=== PATIENT | male | born 1950 | race Caucasian/White ===

== ENCOUNTER → 2016-07-12 | Outpatient (CLI) | payer MEDICARE ==
[2016-07-12 20:09] LABS: Hemoglobin A1C 7.1 % (4.2-6.1)
== END ==
LOC: MMGSC 14:52
PROVIDERS: ATTEND Family Medicine
DX: E11.9 Type 2 diabetes mellitus without complications (principal)
CPT/HCPCS: 36415; 83036

== ENCOUNTER → 2016-10-11 | Outpatient (CLI) | payer MEDICARE ==
[2016-10-11 20:40] LABS: Hemoglobin A1C 7.3 % (4.2-6.1)
[2016-10-12 01:38] LABS: Urine Creatinine 73.6 mg/dL
== END ==
LOC: MMGSC 15:45
PROVIDERS: ATTEND Family Medicine
DX: E11.9 Type 2 diabetes mellitus without complications (principal)
CPT/HCPCS: 36415; 82043; 82570; 83036

== ENCOUNTER → 2016-11-16 | Outpatient (CLI) | payer MEDICARE ==
[2016-11-16 19:12] LABS: Basophils % (A) 0 %; CH 29.7; CHCM 33.3; Eosinophils # (A) 0.1 k/uL (0-0.7); Eosinophils % (A) 1 %; HCT 40.6 % (39.0-53.0); HDW 2.46; HGB 13.5 gm/dL (13.0-17.5); Luc % (Auto) 3; Lymphocytes # (A) 2.5 k/uL (1.0-4.8); Lymphocytes % (A) 23 %; MCH 29.8 pg (25.0-35.0); MCHC 33.3 g/dL (31.0-37.0); MCV 89.6 fL (80.0-100.0); Mean Platelet Volume 8.5; Monocytes # (A) 0.6 k/uL (0-1.0); Monocytes % (A) 6 %; Neutrophils # (A) 7.5 k/uL (1.3-7.7); Neutrophils % (A) 67 %; RBC 4.52 m/uL (4.30-5.90); WBC (Perox) 11.12
[2016-11-16 19:23] LABS: ALT 40 U/L (21-72); AST 27 U/L (17-59); Alkaline Phosphatase 59 U/L (38-126); Anion Gap 9 mmol/L; Blood Urea Nitrogen 13 mg/dL (9-20); Calcium 9.2 mg/dL (8.4-10.2); Carbon Dioxide 30 mmol/L (22-30); Chloride 96 mmol/L (98-107); Cholesterol 115 mg/dL (<200); Glucose 150 mg/dL (74-99); HDL Cholesterol 28 mg/dL (40-60); Non-African American GFR(MDRD) >60 (>60 ml/min/1.73 sqM); Potassium 4.5 mmol/L (3.5-5.1); Sodium 135 mmol/L (137-145); Total Bilirubin 0.4 mg/dL (0.2-1.3); Total Protein 6.9 g/dL (6.3-8.2)
[2016-11-16 20:43] LABS: Hemoglobin A1C 7.6 % (4.2-6.1)
== END ==
LOC: MMGSC 15:43
PROVIDERS: ATTEND Family Medicine
DX: E11.9 Type 2 diabetes mellitus without complications (principal); M54.5 Low back pain; F41.9 Anxiety disorder, unspecified
CPT/HCPCS: 36415; 80053; 80061; 83036; 84439; 84443; 85025

== ENCOUNTER → 2017-03-16 | Outpatient (CLI) | payer MEDICARE ==
[2017-03-16 19:07] LABS: ALT 41 U/L (21-72); AST 24 U/L (17-59); Albumin 4.4 g/dL (3.5-5.0); Alkaline Phosphatase 62 U/L (38-126); Anion Gap 13 mmol/L; Blood Urea Nitrogen 12 mg/dL (9-20); Calcium 9.6 mg/dL (8.4-10.2); Carbon Dioxide 30 mmol/L (22-30); Chloride 98 mmol/L (98-107); Glucose 130 mg/dL (74-99); Sodium 141 mmol/L (137-145); Total Bilirubin 0.5 mg/dL (0.2-1.3); Total Protein 7.5 g/dL (6.3-8.2)
[2017-03-16 19:13] LABS: T4, Free (Free Thyroxine) 1.07 ng/dL (0.78-2.19)
[2017-03-17 01:34] LABS: Hemoglobin A1C 7.3 % (4.0-6.0)
== END | disposition home or self-care (01) ==
LOC: MMGSC 14:36
PROVIDERS: ATTEND Family Medicine
DX: E11.9 Type 2 diabetes mellitus without complications (principal); I10 Essential (primary) hypertension; Z51.81 Encounter for therapeutic drug level monitoring
CPT/HCPCS: 36415; 80053; 83036; 84439; 84443

== ENCOUNTER 2018-11-28 07:44 | Day surgery (SDC) | payer MEDICARE ==
[2018-11-23 12:41] VITALS: BMI 48.0
[~2018-11-28 07:44] MED LIST: ALPRAZolam 0.25 MG TAB PO PRN; ALPRAZolam 0.5 MG TAB PO PRN; ASPIRIN 325 MG TAB PO STA; ATORVASTATIN 80 MG TAB PO STA; NITROGLYCERIN SL TABS 0.4 MG TAB SUBLINGUAL PRN; SODIUM CHLORIDE 0.9% 1,000 ML in EMPTY BAG 1 BAG IV ONE
[2018-11-28 08:20] VITALS: TEMP 97.8
[2018-11-28 08:40] LABS: Glucose,Whole Blood 142 mg/dL (75-99)
[2018-11-28] MEDS ORDERED: LIDOCAINE 1% INJ 10MG/ML (20 ML MDV) ONE (09:01)
[2018-11-28] MEDS ORDERED: VERAPAMIL 2.5 MG/ML 2 ML AMP ONE (09:01)
[2018-11-28] MEDS ORDERED: fentaNYL (PF) 50 MCG/ML 2 ML AMP ONE (09:06)
[2018-11-28] MEDS ORDERED: HEPARIN SODIUM 1,000 UN/ML (10ML VL) ONE (09:06)
[2018-11-28] MEDS ORDERED: fentaNYL (PF) 50 MCG/ML 2 ML AMP IVP ONE (09:30)
[2018-11-28] MEDS ORDERED: LIDOCAINE 1% INJ 10MG/ML (20 ML MDV) SQ ONE (09:30)
[2018-11-28] MEDS ORDERED: VERAPAMIL SYRINGE (5 MG/10 ML) INTRAARTER ONE (09:33)
[2018-11-28] MEDS ORDERED: HEPARIN SODIUM 1,000 UN/ML (10ML VL) IV ONE (09:38)
[2018-11-28] MEDS ORDERED: IOPAMIDOL-370 125ML BTL INJ ONE (09:47)
[2018-11-28] MEDS ORDERED: RX INFO: IV CONTRAST WAS GIVEN 1 EACH MISC MISCELLANE PRN (09:59)
[2018-11-28] MEDS ORDERED: oxyCODONE-APAP 10-325MG 1 EACH TAB PO PRN (10:00)
[2018-11-28] MEDS ORDERED: SODIUM CHLORIDE 0.9% 1,000 ML IV SCH (10:00)
--- NOTE | 2018-11-28 10:22 | CC ---
CARDIAC CATHETERIZATION REPORT Mr. Vo is a 67-year-old male with a known history of chronic persistent atrial fibrillation, history of hypertension, hyperlipidemia and diabetes mellitus, who presented with symptoms of progressive dyspnea and chest discomfort with physical activity. Because of that and because of his multiple risk factors, recommendation was made regarding cardiac catheterization. The procedure as well as the risks and the complications were discussed with the patient who is in full understanding and agreement. PROCEDURE: Patient was brought to manager cath lab in a fasting semi-sedated state after receiving fentanyl and Benadryl and achieving moderate conscious sedated state. Using Xylocaine anesthesia and Seldinger technique, a 6-Eritrean sheath was introduced in the right radial artery. Selective right and left coronary angiography performed using 5-Eritrean 3.5 bend right and left Samuel catheters. Multiple views of the coronary artery including hemiaxial views obtained. Following that, 5-Eritrean tight pigtail catheter was introduced in the left ventricle and a 30-degree KOO view of the left ventricle was obtained. Following that, catheter and sheath were removed. Hemostasis was obtained with deployment of a TR band. There was no immediate complication. Patient was returned to his room in stable condition. The patient received 5000 units of intravenous heparin as well as intra-arterial verapamil. FINDINGS: LEFT MAIN: This is a large-sized vessel trifurcating left circumflex, left anterior descending artery and ramus intermedius. Left main coronary artery has no evidence of high-grade stenosis. LEFT ANTERIOR DESCENDING ARTERY: This is a large-sized vessel reaching to the apex, tapers down distal third gives rise to 2 diagonal branches of moderate caliber. The left anterior descending artery as well as branches have no evidence of obstructive coronary artery disease. LEFT CIRCUMFLEX: This is a nondominant vessel giving rise to one obtuse marginal branch of moderate caliber. The left circumflex as well as branches have no evidence of obstructive coronary artery disease. RAMUS INTERMEDIUS: This is a large-sized vessel reaching toward the apical lateral wall. The ramus intermedius has no evidence of high-grade stenosis. RIGHT CORONARY ARTERY: This is a large dominant vessel bifurcating distally in PDA and posterolateral segment branches. The right coronary artery in mid segment and in distal segment has 10% to 20% plaque. The rest of the vessel has no high-grade stenosis. LEFT VENTRICULOGRAM: Left ventriculogram is performed in 30-degree KOO view and revealed normal left ventricular size and systolic function. Ejection fraction is 60%. There was no significant mitral regurgitation. HEMODYNAMICS: There was no gradient across the aortic valve. The left ventricular end-diastolic pressure was 16 mmHg. IMPRESSION: 1. Mild coronary artery disease involving the right coronary artery. 2. Normal left ventricular size and systolic function. RECOMMENDATION: In view of finding anatomy, I recommend to continue medical therapy with aggressive coronary risk modifications that have been initiated. Those findings and recommendations were discussed with the patient and his family who are in full understanding and agreement. Duration of procedure is 19 minutes. MMODL / IJN: [id number] /
--- NOTE | 2018-11-28 10:28 | LTR ---
November 28, 2018 Re: Olman Vo Dear Dr. Monge: I had the opportunity to perform cardiac catheterization on Mr. Vo at [facility] on the 28 of November and a full copy of the procedure note will be forwarded to you. In brief, he was found to have mild disease in the RCA with preserved left ventricular size and systolic function. Based on those findings, I recommend continued medical therapy with aggressive coronary risk modifications that have been initiated. Thank you again for allowing me the opportunity to participate in his care. Please feel free to call for any questions. Sincerely yours, MD LAURYN KnowlesL / NIRANJANN: [phone] /
[2018-11-28] MEDS ORDERED: HYDROcodone/APAP 10-325MG 1 EACH TAB ONE (11:12)
[2018-11-28 13:31] VITALS: RESP 16
[2018-11-28 15:07] VITALS: BP 112/72; PULSE 57
[2018-11-28] MEDS ORDERED: BACLOFEN 10 MG TAB PO SCH (16:00)
[2018-11-28] MEDS ORDERED: LAMOTRIGINE 200 MG PO SCH (21:00)
[2018-11-28] MEDS ORDERED: GLIMEPIRIDE 4 MG TAB PO SCH (21:00)
[2018-11-28] MEDS ORDERED: MORPHINE SULFATE ER 60 MG TABLET PO SCH (21:00)
[2018-11-28] MEDS ORDERED: SENNOSIDES 8.6 MG TAB PO SCH (21:00)
[2018-11-28] MEDS ORDERED: GABAPENTIN 400 MG CAP PO SCH (21:00)
[2018-11-28] MEDS ORDERED: METOPROLOL TARTRATE 100 MG PO SCH (21:00)
[2018-11-29] MEDS ORDERED: PANTOPRAZOLE 40 MG TABLET PO SCH (07:30)
[2018-11-29] MEDS ORDERED: FLUTICASONE 44 MCG INHALER INHALATION SCH (08:00)
[2018-11-29] MEDS ORDERED: VENLAFAXINE HCL ER 150 MG CAP PO SCH (09:00)
[2018-11-29] MEDS ORDERED: LISINOPRIL-HCTZ 20-12.5 MG 1 EACH TAB PO SCH (09:00)
[2018-11-29] MEDS ORDERED: VENLAFAXINE HCL 37.5 MG TAB PO SCH (09:00)
[2018-11-29] MEDS ORDERED: NON FORMULARY DRUG (Liraglutide [Victoza 3-Pak] 1.8 MG) SQ SCH (09:00)
[2018-11-29] MEDS ORDERED: MELOXICAM 7.5 MG TAB PO SCH (09:00)
[2018-11-29] MEDS ORDERED: ATORVASTATIN 20 MG TAB PO SCH (09:00)
[2018-11-29] MEDS ORDERED: NON FORMULARY DRUG (Linaclotide [Linzess] 145 MCG) PO SCH (09:00)
== END 2018-11-28 15:08 | disposition home or self-care (01) ==
LOC: CATHCVL 07:44
PROVIDERS: ATTEND Internal Medicine Interventional Cardiology
DX: I25.110 Atherosclerotic heart disease of native coronary artery with unstable angina pectoris (principal); I10 Essential (primary) hypertension; Z57.31 Occupational exposure to environmental tobacco smoke; E78.2 Mixed hyperlipidemia; E78.00 Pure hypercholesterolemia, unspecified; E11.51 Type 2 diabetes mellitus with diabetic peripheral angiopathy without gangrene; Z82.49 Family history of ischemic heart disease and other diseases of the circulatory system; G47.33 Obstructive sleep apnea (adult) (pediatric); I48.1 Persistent atrial fibrillation; Z79.01 Long term (current) use of anticoagulants; Z79.84 Long term (current) use of oral hypoglycemic drugs; Z79.891 Long term (current) use of opiate analgesic; Z79.51 Long term (current) use of inhaled steroids; Z79.899 Other long term (current) drug therapy; Z88.0 Allergy status to penicillin; Z88.2 Allergy status to sulfonamides
CPT/HCPCS: 93458; J2001; J3010; J1644; Q9967

== ENCOUNTER 2018-12-13 05:34 | Day surgery (SDC) | payer MEDICARE ==
[2018-12-11 12:05] VITALS: BMI 48.7
[2018-12-13] MEDS ORDERED: LIDOCAINE 1% 20 ML VIAL (10MG/ML) FOR IV START INTRADERMA PRN (06:11)
[2018-12-13] MEDS ORDERED: LACTATED RINGERS 1,000 ML IV SCH (06:11)
[2018-12-13] MEDS ORDERED: SODIUM CHLORIDE 0.9% 1,000 ML IV SCH ×2 (06:11→07:45)
[2018-12-13 06:35] VITALS: TEMP 98.8
[2018-12-13 06:47] LABS: Glucose,Whole Blood 148 mg/dL (75-99)
[2018-12-13] MEDS ORDERED: BENZOCAINE SPRAY 1 CAN MUCOUS MEM ONE ×2 (07:20→07:25)
[2018-12-13] MEDS ORDERED: GLYCOPYRROLATE 0.2 MG/ML 2 ML VIAL ONE (07:26)
[2018-12-13] MEDS ORDERED: PROPOFOL 10 MG/ML 20 ML VIAL IV ONE (07:26)
[2018-12-13] MEDS ORDERED: LIDOCAINE 1% INJ 10MG/ML (20 ML MDV) ONE (07:26)
[2018-12-13] MEDS ORDERED: oxyCODONE-APAP 10-325MG 1 EACH TAB PO PRN (07:43)
[2018-12-13] MEDS ORDERED: BECLOMETHASONE DIPROPIONATE INHALATION PRN (07:43)
--- NOTE | 2018-12-13 07:59 | CE ---
CARDIAC ELECTROPHYSIOLOGY REPORT CARDIOVERSION PROCEDURE NOTE: INDICATION: Atrial fibrillation. PROCEDURE: After explaining the procedure to the patient as well as the risks and the complications and after obtaining transesophageal echocardiogram, a synchronized biphasic cardioversion using 200, 300 and subsequently 360 joules was successful in restoring normal sinus rhythm. There was no immediate complication. KATH / TOSIN: [id number] / MTDD
--- NOTE | 2018-12-13 07:59 | ECHOT ---
TRANSESOPHAGEAL ECHOCARDIOGRAM INDICATION: Evaluation left atrial appendage. PROCEDURE: After explaining the procedure to the patient, its risks and the complications, his blood pressure, heart rate, O2 saturation was monitored. He received sedation per Anesthesia Department. The probe was introduced into the esophagus without difficulty. Images were obtained. Following that, the probe was removed. There was no immediate complication. FINDINGS: The left atrial size is dilated measuring 5 cm, spontaneous contrast was noted. Left atrial appendage is normal. Left ventricular size and systolic function normal, the aortic valve, mitral, tricuspid and pulmonic valve are normal. Normal descending thoracic aorta appears to be normal. No pericardial effusion was noted. Contrast bubble study revealed no evidence of shunting across the interatrial septum. Doppler pulse wave and color Doppler obtained and revealed a mild mitral and tricuspid regurgitation. There was no shunting by color Doppler study. CONCLUSION: 1. Moderate dilated left atrium with spontaneous contrast. 2. Normal appearance left atrial appendage. 3. Normal left ventricular size and systolic function. 4. Mild mitral and tricuspid regurgitation. 5. No shunting across the interatrial septum. 6. Normal appearance of the descending thoracic aorta. MMODL / IJN: [id number] /
[2018-12-13] MEDS ORDERED: ATORVASTATIN 20 MG TAB PO SCH (09:00)
[2018-12-13] MEDS ORDERED: MORPHINE SULFATE ER 60 MG TABLET PO SCH (09:00)
[2018-12-13] MEDS ORDERED: NON FORMULARY DRUG (Metformin Hcl [Metformin Hcl] 1,000 MG) PO SCH (09:00)
[2018-12-13] MEDS ORDERED: BACLOFEN 10 MG TAB PO SCH (09:00)
[2018-12-13] MEDS ORDERED: LISINOPRIL-HCTZ 20-12.5 MG 1 EACH TAB PO SCH (09:00)
[2018-12-13] MEDS ORDERED: VENLAFAXINE HCL ER 150 MG CAP PO SCH (09:00)
[2018-12-13] MEDS ORDERED: MELOXICAM 15 MG PO SCH (09:00)
[2018-12-13] MEDS ORDERED: APIXABAN 5 MG TAB PO SCH (09:00)
[2018-12-13] MEDS ORDERED: NON FORMULARY DRUG (Linaclotide [Linzess] 145 MCG) PO SCH (09:00)
[2018-12-13] MEDS ORDERED: VENLAFAXINE HCL 37.5 MG TAB PO SCH (09:00)
[2018-12-13] MEDS ORDERED: GABAPENTIN 1200 MG PO SCH (09:00)
[2018-12-13] MEDS ORDERED: METOPROLOL TARTRATE 100 MG PO SCH (09:00)
[2018-12-13] MEDS ORDERED: NON FORMULARY DRUG (Liraglutide [Victoza 3-Pak] 1.8 MG) SQ SCH (09:00)
[2018-12-13] MEDS ORDERED: NON FORMULARY DRUG (Omeprazole [Omeprazole] 20 MG) PO SCH (09:00)
[2018-12-13] MEDS ORDERED: GLIMEPIRIDE 4 MG TAB PO SCH (09:00)
[2018-12-13 09:31] VITALS: BP 129/77; PULSE 62; RESP 18
[2018-12-13] MEDS ORDERED: SENNOSIDES 8.6 MG TAB PO SCH (21:00)
== END 2018-12-13 09:32 | disposition home or self-care (01) ==
LOC: CATHCVL 05:34
PROVIDERS: ATTEND Internal Medicine Interventional Cardiology
DX: I48.19 Other persistent atrial fibrillation (principal); I08.1 Rheumatic disorders of both mitral and tricuspid valves; I25.10 Atherosclerotic heart disease of native coronary artery without angina pectoris; I10 Essential (primary) hypertension; E78.2 Mixed hyperlipidemia; E11.51 Type 2 diabetes mellitus with diabetic peripheral angiopathy without gangrene; G47.33 Obstructive sleep apnea (adult) (pediatric); J44.9 Chronic obstructive pulmonary disease, unspecified; K21.9 Gastro-esophageal reflux disease without esophagitis; Z79.01 Long term (current) use of anticoagulants; Z79.84 Long term (current) use of oral hypoglycemic drugs; Z79.51 Long term (current) use of inhaled steroids; Z79.891 Long term (current) use of opiate analgesic; Z88.0 Allergy status to penicillin; Z88.2 Allergy status to sulfonamides; Z79.899 Other long term (current) drug therapy; Z82.49 Family history of ischemic heart disease and other diseases of the circulatory system; Z99.89 Dependence on other enabling machines and devices
CPT/HCPCS: 93312; 93320; 93325; 92960; J2001; J2704

== ENCOUNTER 2020-11-17 10:35 | Emergency (ER) | payer MEDICARE ==
--- NOTE | 2020-11-17 11:23 | ED ---
Lower Extremity Injury HPI - General Chief Complaint: Extremity Injury, Lower Stated Complaint: Leg Pain Time Seen by Provider: 11/17/20 11:00 Source: patient, family Mode of arrival: wheelchair Limitations: no limitations - History of Present Illness Initial Comments: Patient is a 69-year-old male, with history of multiple comorbidities, chronic back pain, bilateral knee replacements, presenting to the emergency Department with complaints of progressively worsening right leg pain over the past 2-3 months. Patient states he had a fall at her doctor's office a few months ago, felt like his right leg just gave out. He did have x-rays of his right hip at that time showed no acute fractures dislocations. He states over the last few months the pain has been progressively getting worse. He called his physician about this and they recommended coming into the ER. He has had surgery on his low back, thinks it could be a little sciatica as well. He denies any chest pain or shortness of breath, no abdominal pain, no fevers or chills. He is on a Eliquis secondary to A. fib, no history of blood clots. He has no further complaints at this time. Upon arrival to the ER his vitals are stable. - Related Data Home Medications Medication Instructions Recorded Confirmed Apixaban [Eliquis] 5 mg PO BID 11/23/18 12/13/18 Atorvastatin [Lipitor] 20 mg PO DAILY 11/23/18 12/13/18 Baclofen [Lioresal] 10 mg PO TID 11/23/18 12/13/18 Beclomethasone Dipropionate [Qvar 1 puff INHALATION BID PRN 11/23/18 12/13/18 40 mcg Redihaler] Gabapentin 1,200 mg PO BID 11/23/18 12/13/18 Glimepiride [Amaryl] 4 mg PO BID 11/23/18 12/13/18 Linaclotide [Linzess] 145 mcg PO DAILY 11/23/18 12/13/18 Liraglutide [Victoza 3-Ryan] 1.8 mg SQ DAILY 11/23/18 12/13/18 Lisinopril-Hctz 20-12.5 mg 1 tab PO DAILY 11/23/18 12/13/18 [Zestoretic 20-12.5] Meloxicam 15 mg PO DAILY 11/23/18 12/13/18 Metoprolol Tartrate [Lopressor] 100 mg PO BID 11/23/18 12/13/18 Morphine Sulfate [Ms Contin] 60 mg PO Q12HR 11/23/18 12/13/18 Omeprazole 20 mg PO DAILY 11/23/18 12/13/18 Sennosides [Senna] 4 tab PO BID 11/23/18 12/13/18 Venlafaxine HCl [Effexor XR] 150 mg PO DAILY 11/23/18 12/13/18 Venlafaxine HCl [Effexor] 37.5 mg PO DAILY 11/23/18 12/13/18 metFORMIN HCL [Glucophage] 1,000 mg PO BID 11/23/18 12/13/18 oxyCODONE-APAP 10-325MG [Percocet 1 tab PO Q8HR PRN 11/23/18 12/13/18 10-325 mg] Previous Rx's Medication Instructions Recorded predniSONE 50 mg PO DAILY #5 tab 11/17/20 Allergies Allergy/AdvReac Type Severity Reaction Status Date / Time Penicillins Allergy Anaphylaxis Verified 11/17/20 10:41 Sulfa (Sulfonamide Allergy Anaphylaxis Verified 11/17/20 10:41 Antibiotics) Review of Systems ROS Statement: Those systems with pertinent positive or pertinent negative responses have been documented in the HPI. ROS Other: All systems not noted in ROS Statement are negative. Past Medical History Past Medical History: Atrial Fibrillation, COPD, Diabetes Mellitus, GERD/Reflux, Hearing Disorder / Deafness, Hyperlipidemia, Hypertension, Musculoskeletal Disorder Additional Past Medical History / Comment(s): Chronic Back Pain, sees pain specialist, unable to walk any distance. Neuropathy in feet. Very [place], wears aids. History of Any Multi-Drug Resistant Organisms: None Reported Past Surgical History: Back Surgery, Heart Catheterization, Joint Replacement Additional Past Surgical History / Comment(s): Abel TKA. Colonoscopy. Glaucoma surg abel. Heart cath 11/28/18 Past Anesthesia/Blood Transfusion Reactions: No Reported Reaction Past Psychological History: Anxiety, Depression Past Alcohol Use History: Occasional Past Drug Use History: None Reported - Past Family History Father Family Medical History: Cancer General Exam - General Exam Comments Initial Comments: GENERAL: Patient is well-developed and well-nourished. Patient is nontoxic and in no acute distress. HEAD: Atraumatic, normocephalic. EYES: Pupils equal round and reactive to light, extraocular movements intact, sclera anicteric, conjunctiva are normal. Eyelids were unremarkable. ENT: Nares patent, oropharynx clear without exudates. Moist mucous membranes. NECK: Normal range of motion, supple without lymphadenopathy or JVD. LUNGS: Unlabored respirations. Breath sounds clear to auscultation bilaterally and equal. No wheezes rales or rhonchi. HEART: Regular rate and rhythm without murmurs, rubs or gallops. ABDOMEN: Soft, nontender, normoactive bowel sounds. No guarding, no rebound. No masses appreciated. : Deferred MUSCULOSKELETAL: Mild pain to palpation of the anterior right knee, he does have full active range of motion of the right hip and right knee. He is bilaterally neurovascular intact lower extremities. No significant edema, no erythema or signs of infection. No clubbing or cyanosis. NEUROLOGICAL: Patient is alert and oriented x 3. Motor and sensory are also intact. Cranial nerves II through XII grossly intact. Symmetrical smile. Normal speech, normal gait. PSYCH: Normal mood, normal affect. SKIN: Warm, Dry, normal turgor, no rashes or lesions noted. Limitations: no limitations Course Vital Signs 11/17/20 10:36 Temperature 98.8 F Pulse Rate 64 Respiratory 18 Rate Blood Pressure 182/78 O2 Sat by Pulse 95 Oximetry Medical Decision Making - Medical Decision Making Patient is a 69-year-old male with multiple Edwardo 80s, bilateral knee replacement, low back surgery and chronic pain, presenting with worsening right leg pain over the past 2-3 months. He had a fall a few months ago, right hip x- rays revealed no acute fracture dislocations. He does have full active range of motion of his right extremity, neurovascular intact. History of blood clots, he is on a Eliquis secondary to A. fib. Ultrasound is negative for DVT of the right lower extremity, x-ray of the right knee show a prosthetic is in alignment, no acute process, right hip x-ray reveals some trochanteric spurs, mild impingement, no acute fracture dislocation. Lumbar back x-ray shows degenerative changes, distress Of the bottom screws, patient is a 30 aware of this. I discussed these findings with the patient and his . These are all chronic issues going on I recommended following up with orthopedic. He is in agreement with this plan of care. He is wondering about pain relief. He R he takes morphine, Percocets at home. I recommended a short course of steroids to help improve inflammation, he is agreeable to this. Return parameters were discussed with him and he verbalized understanding. Case discussed with Dr. Mccray. Disposition Clinical Impression: Right knee pain, Lumbar radiculopathy, chronic Disposition: HOME SELF-CARE Condition: Stable Instructions (If sedation given, give patient instructions): Knee Pain (ED) Additional Instructions: Please return to the Emergency Department if symptoms worsen or any other concerns. Please follow-up with orthopedic as discussed. Trial of steriods for pain relief, please monitor sugar levels. Prescriptions: predniSONE 50 mg PO DAILY #5 tab Is patient prescribed a controlled substance at d/c from ED?: No Referrals: Sophy Phelan MD [Primary Care Provider] - 1-2 days Nicolas Lai MD [STAFF PHYSICIAN] - 1-2 days Time of Disposition: 13:52
--- NOTE | 2020-11-17 12:12 | US ---
EXAMINATION TYPE: US venous doppler duplex LE RT DATE OF EXAM: 11/17/2020 12:05 PM COMPARISON: NONE CLINICAL HISTORY: pain, swelling. Pain and swelling. No hx of DVT. Patient takes eliquis. Hx right kn ee replacement. SIDE PERFORMED: Right TECHNIQUE: The lower extremity deep venous system is examined utilizing real time linear array sonog balwinder with graded compression, doppler sonography and color-flow sonography. VESSELS IMAGED: Common Femoral Vein Deep Femoral Vein Greater Saphenous Vein * Femoral Vein Popliteal Vein Small Saphenous Vein * Proximal Calf Veins (* superficial vessels) Limited due to body habitus. Right Leg: No evidence of DVT in veins imaged at this time. IMPRESSION: 1. Limited exam demonstrates no diagnostic evidence of DVT as visualized.
--- NOTE | 2020-11-17 13:09 | XR ---
EXAMINATION TYPE: XR knee complete RT DATE OF EXAM: 11/17/2020 CLINICAL HISTORY: Increasing right knee pain. TECHNIQUE: Three views of the right knee are obtained. COMPARISON: Right knee x-ray July 28, 2020. FINDINGS: There is no acute fracture/dislocation evident in right knee. Metallic prosthesis felt sat isfactory in position. No suspicious surrounding lucency identified. The overlying soft tissue appear s unremarkable. IMPRESSION: As above. No significant change from prior.
--- NOTE | 2020-11-17 13:11 | XR ---
EXAMINATION TYPE: XR Hip Complete RT DATE OF EXAM: 11/17/2020 COMPARISON: NONE HISTORY: Pain TECHNIQUE: 2 views submitted FINDINGS: There is no evidence of erosive change or acute fracture. Mild concentric narrowing the joint space. Hypertrophic change of the acetabulum. Ossification overlying the humeral neck. The superficial bone or represent bone island. Tiny spur extending from the greater trochanter. IMPRESSION: 1. Mild arthropathy correlate for femoral acetabular impingement. 2. Small greater trochanter spur can be associated with trochanteric bursitis correlate clinically.
--- NOTE | 2020-11-17 13:13 | XR ---
EXAM TYPE: LUMBAR SPINE X RAY SERIES COMPARISON: None HISTORY: Pain TECHNIQUE: 3 views are submitted. FINDINGS: Postsurgical changes at levels L4-S1. There may be disruption of the transpedicular screws at the lev el of S1 bilaterally which be correlated clinically. Multilevel degenerative disc disease and hypertr ophic spurring. Minimal anterolisthesis L4 on L5. Multilevel facet arthropathy noted most pronounced L3-L4. IMPRESSION: 1. Postsurgical change. See above regarding S1 transpedicular screws. Screws may be disrupted correla te clinically. 2. Multilevel degenerative disc disease and facet arthropathy with grade 1 anterolisthesis L4 on L5.
[2020-11-17 14:01] VITALS: BP 188/78; PULSE 67; RESP 17; TEMP 98
== END 2020-11-17 13:55 | disposition home or self-care (01) ==
LOC: EC 10:35
DX: M25.561 Pain in right knee (principal); G89.29 Other chronic pain; M54.16 Radiculopathy, lumbar region; M25.551 Pain in right hip; K21.9 Gastro-esophageal reflux disease without esophagitis; E78.5 Hyperlipidemia, unspecified; J44.9 Chronic obstructive pulmonary disease, unspecified; I48.91 Unspecified atrial fibrillation; E11.9 Type 2 diabetes mellitus without complications; I10 Essential (primary) hypertension; H91.90 Unspecified hearing loss, unspecified ear; Z88.0 Allergy status to penicillin; Z88.2 Allergy status to sulfonamides; Z79.899 Other long term (current) drug therapy; Z79.84 Long term (current) use of oral hypoglycemic drugs; Z98.61 Coronary angioplasty status
CPT/HCPCS: 72100; 73502; 99284

== ENCOUNTER 2023-12-29 01:22 | Observation (INO) | payer MEDICARE ==
[2023-12-29] MEDS ORDERED: NALOXONE 0.4 MG/ML 1 ML VIAL IV PRN (01:46)
[2023-12-29] MEDS ORDERED: ACETAMINOPHEN TAB 325 MG TAB PO PRN (01:46)
--- NOTE | 2023-12-29 01:51 | ED ---
General Adult HPI - General Chief complaint: Shortness of Breath Stated complaint: Neurology Time Seen by Provider: 12/29/23 01:26 Source: patient, EMS, RN notes reviewed, old records reviewed Mode of arrival: EMS - History of Present Illness Initial comments: 73-year-old male presenting as transfer from [facility] for evaluation of dyspnea, CHF. Patient was noted to have pulmonary edema on x-ray and peripheral edema. Initial complaint presenting to outside emergency department was dyspnea and mild confusion. Patient received workup for both including chest x-ray, CT, CT angiography, full laboratory testing. Patient was noted to have pulmonary edema and elevated BNP. He was sent to this institution for further evaluation and treatment. Patient has no complaints at the time my evaluation. He is on 2 L nasal cannula which is new for this patient. History of atrial fibrillation currently on Eliquis. - Related Data Home Medications Medication Instructions Recorded Confirmed Apixaban [Eliquis] 5 mg PO BID 11/23/18 12/13/18 Atorvastatin [Lipitor] 20 mg PO DAILY 11/23/18 12/13/18 Baclofen [Lioresal] 10 mg PO TID 11/23/18 12/13/18 Beclomethasone Dipropionate [Qvar 1 puff INHALATION BID PRN 11/23/18 12/13/18 40 mcg Redihaler] Gabapentin 1,200 mg PO BID 11/23/18 12/13/18 Glimepiride [Amaryl] 4 mg PO BID 11/23/18 12/13/18 Linaclotide [Linzess] 145 mcg PO DAILY 11/23/18 12/13/18 Liraglutide [Victoza 3-Ryan] 1.8 mg SQ DAILY 11/23/18 12/13/18 Lisinopril-Hctz 20-12.5 mg 1 tab PO DAILY 11/23/18 12/13/18 [Zestoretic 20-12.5] Meloxicam 15 mg PO DAILY 11/23/18 12/13/18 Metoprolol Tartrate [Lopressor] 100 mg PO BID 11/23/18 12/13/18 Morphine Sulfate [Ms Contin] 60 mg PO Q12HR 11/23/18 12/13/18 Omeprazole 20 mg PO DAILY 11/23/18 12/13/18 Sennosides [Senna] 4 tab PO BID 11/23/18 12/13/18 Venlafaxine HCl [Effexor XR] 150 mg PO DAILY 11/23/18 12/13/18 Venlafaxine HCl [Effexor] 37.5 mg PO DAILY 11/23/18 12/13/18 metFORMIN HCL [Glucophage] 1,000 mg PO BID 11/23/18 12/13/18 oxyCODONE-APAP 10-325MG [Percocet 1 tab PO Q8HR PRN 11/23/18 12/13/18 10-325 mg] Previous Rx's Medication Instructions Recorded predniSONE 50 mg PO DAILY #5 tab 11/17/20 Allergies Allergy/AdvReac Type Severity Reaction Status Date / Time Penicillins Allergy Anaphylaxis Verified 12/29/23 01:29 Sulfa (Sulfonamide Allergy Anaphylaxis Verified 12/29/23 01:29 Antibiotics) Review of Systems ROS Statement: Those systems with pertinent positive or pertinent negative responses have been documented in the HPI. ROS Other: All systems not noted in ROS Statement are negative. Past Medical History Past Medical History: Atrial Fibrillation, COPD, Diabetes Mellitus, GERD/Reflux, Hearing Disorder / Deafness, Hyperlipidemia, Hypertension, Musculoskeletal Disorder Additional Past Medical History / Comment(s): Chronic Back Pain, sees pain specialist, unable to walk any distance. Neuropathy in feet. Very [place], wears aids. History of Any Multi-Drug Resistant Organisms: None Reported Past Surgical History: Back Surgery, Heart Catheterization, Joint Replacement Additional Past Surgical History / Comment(s): Noel TKA. Colonoscopy. Glaucoma surg noel. Heart cath 11/28/18 Past Anesthesia/Blood Transfusion Reactions: No Reported Reaction Past Psychological History: Anxiety, Depression Past Alcohol Use History: Occasional Past Drug Use History: None Reported - Past Family History Father Family Medical History: Cancer General Exam General appearance: alert, in no apparent distress Head exam: Present: atraumatic, normocephalic Eye exam: Present: normal appearance, PERRL ENT exam: Present: normal exam Neck exam: Present: normal inspection. Absent: tenderness, meningismus Respiratory exam: Present: decreased breath sounds. Absent: respiratory distress Cardiovascular Exam: Present: tachycardia, irregular rhythm GI/Abdominal exam: Present: soft. Absent: distended, tenderness, guarding Extremities exam: Present: pedal edema Neurological exam: Present: alert, oriented X3, CN II-XII intact. Absent: motor sensory deficit Psychiatric exam: Present: normal affect, normal mood Skin exam: Present: warm, dry, intact Course Vital Signs 12/29/23 12/29/23 12/29/23 01:23 01:40 03:06 Temperature 98.3 F Pulse Rate 94 96 95 Respiratory 20 20 20 Rate Blood Pressure 140/121 153/92 153/111 O2 Sat by Pulse 98 93 L 97 Oximetry 12/29/23 04:00 Temperature 98.7 F Pulse Rate 82 Respiratory 18 Rate Blood Pressure 134/114 O2 Sat by Pulse 95 Oximetry Medical Decision Making - Medical Decision Making Was pt. sent in by a medical professional or institution (MATT Valle, BARIATRIC COORDINATOR, urgent care, hospital, or skilled nursing...) When possible be specific @ -Transferred from [facility], Did you speak to anyone other than the patient for history (EMS, parent, family, police, friend...)? What history was obtained from this source @ -No Did you review nursing and triage notes (agree or disagree)? Why? @ -I reviewed and agree with nursing and triage notes Were old charts reviewed (outside hosp., previous admission, EMS record, old EKG, old radiological studies, urgent care reports/EKG's, skilled nursing records)? Report findings @ -No old charts were reviewed Differential Dyspnea: Coronary syndrome, arrhythmia, tamponade, asthma, COPD, pulmonary embolism, pneumonia, pneumothorax, pulmonary effusion, anaphylaxis, diabetic ketoacidosis, flailed chest, pulmonary contusion, diaphragmatic rupture, anemia, neuromuscular, this is not meant to be an all-inclusive list. EKG interpreted by me (3pts min.). @Atrial fibrillation with a rate of 96, QRS duration 97, QTc [address] segment elevation. X-rays interpreted by me (1pt min.). @ -None done CT interpreted by me (1pt min.). @ -None done U/S interpreted by me (1pt. min.). @ -None done What testing was considered but not performed or refused? (CT, X-rays, U/S, labs)? Why? @ -None What meds were considered but not given or refused? Why? @ -None Did you discuss the management of the patient with other professionals (professionals i.e. , MATT, BARIATRIC COORDINATOR, lab, RT, psych nurse, drug abuse social worker, rate quoting operator, teacher, seismology technical officer, case management rn)? Give summary @ -[[facility] physician group, Dr. Stanley Was smoking cessation discussed for >3mins.? @ -No Was critical care preformed (if so, how long)? @ -No Were there social determinants of health that impacted care today? How? (Homelessness, low income, unemployed, alcoholism, drug addiction, transportation, low edu. Level, literacy, decrease access to med. care, group home, rehab)? @ -No Was there de-escalation of care discussed even if they declined (Discuss DNR or withdrawal of care, Hospice)? DNR status @ -No What co-morbidities impacted this encounter? (DM, HTN, Smoking, COPD, CAD, Ca ncer, CVA, ARF, Chemo, Hep., AIDS, mental health diagnosis, sleep apnea, morbid obesity)? @ -[Atrial fibrillation Was patient admitted / discharged? Hospital course, mention meds given and route, prescriptions, significant lab abnormalities, going to OR and other pertinent info. @ -Patient will be admitted for echo, diuresis, cardiology consultation. Repeat laboratory testing was ordered, including CBC, CMP and BNP. Results pending. Undiagnosed new problem with uncertain prognosis? @ -[No Drug Therapy requiring intensive monitoring for toxicity (Heparin, Nitro, Insulin, Cardizem)? @ -No Were any procedures done? @ -No Diagnosis/symptom? @ -[Atrial fibrillation, CHF Acute, or Chronic, or Acute on Chronic? @ -Acute Uncomplicated (without systemic symptoms) or Complicated (systemic symptoms)? @ -Default Side effects of treatment? @ -No Exacerbation, Progression, or Severe Exacerbation? @ -No Poses a threat to life or bodily function? How? (Chest pain, [place], [place], pneumonia, PE, COPD, DKA, ARF, appy, cholecystitis, CVA, Diverticulitis, Homicidal, Suicidal, threat to staff... and all critical care pts) @ -Yes, respiratory failure, hypoxia - Lab Data Result diagrams: 12/29/23 01:40 12/29/23 01:40 Lab Results 12/29/23 12/29/23 12/29/23 Range/Units 01:40 01:40 01:40 WBC 14.1 H (3.8-10.6) k/uL RBC 4.81 (4.30-5.90) m/uL Hgb 14.7 (13.0-17.5) gm/dL Hct 45.3 (39.0-53.0) % MCV 94.1 (80.0-100.0) fL MCH 30.5 (25.0-35.0) pg MCHC 32.4 (31.0-37.0) g/dL RDW 12.8 (11.5-15.5) % Plt Count 252 (150-450) k/uL MPV 8.1 Neutrophils % 78 % Lymphocytes % 13 % Monocytes % 7 % Eosinophils % 0 % Basophils % 0 % Neutrophils # 11.0 H (1.3-7.7) k/uL Lymphocytes # 1.8 (1.0-4.8) k/uL Monocytes # 1.0 (0-1.0) k/uL Eosinophils # 0.0 (0-0.7) k/uL Basophils # 0.0 (0-0.2) k/uL PT 12.2 (10.0-12.5) sec INR 1.1 (<1.2) APTT 24.9 (22.0-30.0) sec Sodium 138 (137-145) mmol/L Potassium 4.1 (3.5-5.1) mmol/L Chloride 101 (98-107) mmol/L Carbon Dioxide 20 L (22-30) mmol/L Anion Gap 17 mmol/L BUN 21 H (9-20) mg/dL Creatinine 0.75 (0.66-1.25) mg/dL Est GFR (CKD-EPI)AfAm >90 (>60 ml/min/1.73 sqM) Est GFR (CKD-EPI)NonAf >90 (>60 ml/min/1.73 sqM) Glucose 298 H (74-99) mg/dL Calcium 9.0 (8.4-10.2) mg/dL Total Bilirubin 1.0 (0.2-1.3) mg/dL AST 56 (17-59) U/L ALT 29 (4-49) U/L Alkaline Phosphatase 73 (38-126) U/L NT-Pro-B Natriuret Pep 611 pg/mL Total Protein 7.4 (6.3-8.2) g/dL Albumin 4.6 (3.5-5.0) g/dL Disposition Clinical Impression: Congestive heart failure Disposition: ADMITTED IP TO THIS HOSP Condition: Stable Is patient prescribed a controlled substance at d/c from ED?: No Time of Disposition: 01:51
[2023-12-29 01:53] LABS: Basophils % (A) 0 %; Eosinophils % (A) 0 %; HCT 45.3 % (39.0-53.0); HGB 14.7 gm/dL (13.0-17.5); Lymphocytes # (A) 1.8 k/uL (1.0-4.8); Lymphocytes % (A) 13 %; MCH 30.5 pg (25.0-35.0); MCHC 32.4 g/dL (31.0-37.0); MCV 94.1 fL (80.0-100.0); Mean Platelet Volume 8.1; Monocytes % (A) 7 %; Neutrophils % (A) 78 %; Platelet Count 252 k/uL (150-450); RBC 4.81 m/uL (4.30-5.90); RDW 12.8 % (11.5-15.5); WBC 14.1 k/uL (3.8-10.6)
[2023-12-29 02:03] LABS: INR 1.1 (<1.2); Partial Thromboplastin Time 24.9 sec (22.0-30.0); Prothrombin Time 12.2 sec (10.0-12.5)
[2023-12-29 02:04] LABS: ALT 29 U/L (4-49); AST 56 U/L (17-59); African American GFR (CKD) >90 (>60 ml/min/1.73 sqM); Albumin 4.6 g/dL (3.5-5.0); Alkaline Phosphatase 73 U/L (38-126); Anion Gap 17 mmol/L; Blood Urea Nitrogen 21 mg/dL (9-20); Carbon Dioxide 20 mmol/L (22-30); Chloride 101 mmol/L (98-107); Glucose 298 mg/dL (74-99); Non-African American GFR(CKD) >90 (>60 ml/min/1.73 sqM); Potassium 4.1 mmol/L (3.5-5.1); Sodium 138 mmol/L (137-145); Total Protein 7.4 g/dL (6.3-8.2)
[2023-12-29 02:12] LABS: NT-Pro-B-Type Natriuretic Pept 611 pg/mL
[2023-12-29] MEDS: FUROSEMIDE 10 MG/ML 4 ML VIAL IV SCH (07:36)
[2023-12-29] MEDS ORDERED: DEXTROSE 50% SYRINGE 50 ML IVP PRN ×2 (07:45)
[2023-12-29] MEDS: LISINOPRIL-HCTZ 20-12.5 MG 1 EACH TAB PO SCH (09:14)
[2023-12-29] MEDS: VENLAFAXINE HCL ER 150 MG CAP PO SCH (09:16)
[2023-12-29] MEDS: ATORVASTATIN 20 MG TAB PO SCH (09:16)
[2023-12-29] MEDS: APIXABAN 5 MG TAB PO SCH (09:16)
[2023-12-29] MEDS: METOPROLOL TARTRATE 50 MG TAB PO SCH (09:17)
--- NOTE | 2023-12-29 10:40 | P.HPIM ---
History of Present Illness H&P Date: 12/29/23 History of Presenting Illness: Patient is a very pleasant 73-year-old male with a past medical history of CAD, hypertension, hyperlipidemia, chronic atrial fibrillation, chronic diastolic heart failure, insulin-dependent diabetes mellitus, and peripheral vascular disease. He presented to the emergency department as a transfer from [facility] secondary to reports of worsening shortness of breath and concerns for CHF exacerbation secondary elevated BNP and negative troponin with chest x-ray reporting low lung volumes with diffuse hazy appearance concerning for atelectasis versus pulmonary edema. Upon arrival to our facility, patient underwent evaluation in the emergency department. EKG showing atrial fibrillation with a controlled ventricular rate of 96 bpm and an incomplete right bundle branch block upon personal review and interpretation. Vital signs upon arrival show blood pressure 140/121, heart rate 94, respiratory rate 20, temp 98.3 F, and SpO2 of 98% on 2 L. Labs completed and reviewed. CBC showing leukocytosis with WBC count of 14.1. Coagulation profile normal findings. BMP showing high anion gap metabolic acidosis with chloride of 101, bicarb of 20, and anion gap of 17 with prerenal azotemia with BUN of 21. Blood glucose also elevated at 298. Liver profile was unremarkable. proBNP was 611. Patient seen and fully evaluated in room 7 in the emergency department. He is alert and oriented x 3, but also a poor historian. Patient reports he initially presented to the hospital secondary to shortness of breath, fatigue, insomnia and not quite feeling like himself. Patient reports his made him go to the hospital for evaluation. He does admit to feeling short of breath, fatigued, unable to sleep the past 3 days and just off. Patient states he is not sure if he is not sleeping secondary to worsening shortness of breath and was unclear on whether or not orthopnea was present. Patient was changing out of his clothing and into a gown upon my arrival to room, patient was noted to have exertional dyspnea, mild diaphoresis, and slightly tachycardic at 103 on monitor. He denies having any recent illnesses, fevers, chills, headache, lightheadedness, dizziness, chest pain, palpitations, cough or congestion, or any other complaints at this time. Bilateral lower extremities with 1-2+ edema, patient reports slightly increased from baseline. Review of systems: Pertinent positives and negatives as discussed in HPI, a complete review of systems was performed and all other systems are negative. Physical exam: Vital signs reviewed and stable. General: Nontoxic, no distress and appears stated age. Derm: Skin warm and dry, normal coloration for ethnicity. Head: Atraumatic, normocephalic and symmetric. Eyes: EOM's intact, no lid lag, and anicteric sclera Mouth: no lip lesions, mucus membranes moist Cardiovascular: Irregularly irregular, systolic murmur, positive posterior tibi al pulses bilaterally, and cap refill < 2 seconds. Lungs: Respirations even and regular with an increased work of breathing at time of assessment. On 2 L O2 via nasal cannula. Lungs diminished otherwise no rhonchi, no rales, no wheezing, and no accessory muscle usage. Abdominal: soft, nontender to palpation, no guarding, no appreciable organomegaly Ext: ROM intact. No gross muscle atrophy, 1-2+ bilateral lower extremity edema, no contractures Neuro: Speech clear, face symmetrical and CN II-XII grossly intact with no noted focal neuro deficits Psych: Alert and oriented to person, place, and time but slightly confused to situation. Appropriate and pleasant affect seemed agitated with answering questions. Assessment and Plan of Care: Shortness of breath, suspect mild diastolic CHF exacerbation Insomnia Metabolic encephalopathy, secondary to above History of CAD Hypertension Hyperlipidemia Chronic atrial fibrillation Chronic diastolic heart failure -Cardiology consulted, appreciate recommendations -Telemetry monitoring -ProBNP was 611. -Daily weights and Close monitoring of I's and O's -Cardiac diet -Lasix 40 mg IVP every 12 hours pending further recommendations from cardio logist. -Continue cardiac medication regimen with aspirin 81 mg daily, Eliquis 5 mg twice daily, amlodipine 5 mg daily, atorvastatin 20 mg daily, lisinopril/hydrochlorothiazide 20-12.5 mg daily, and metoprolol 100 mg twice daily. -Continued close monitoring of electrolytes while diuresing. Insulin-dependent diabetes mellitus with hyperglycemia -Continue Levemir 64 units daily along with glycemic protocol and NovoLog sliding scale. Peripheral vascular disease -Continue daily aspirin 81 mg daily and atorvastatin 20 mg daily. Anxiety and depression -Continue Abilify 2 mg daily and Effexor 150 mg daily. Data and imaging reviewed: As stated above in HPI CODE STATUS: Full Code DVT prophylaxis: Eliquis Anticipated discharge date: Pending clinical course Anticipated discharge place: Home Patient was seen independently by Nurse Practitioner. This document was prepared using [employer] dictation software. Please allow for errors in document control assistant while rare they do occur. . I reviewed the documentation as provided by the DIANH above, who is the original author of this note. I agree with the documented assessment and plan, with the following changes: none Past Medical History Past Medical History: Atrial Fibrillation, COPD, Diabetes Mellitus, GERD/Reflux, Hearing Disorder / Deafness, Hyperlipidemia, Hypertension, Musculoskeletal Disorder Additional Past Medical History / Comment(s): Chronic Back Pain, sees pain specialist, unable to walk any distance. Neuropathy in feet. Very [place], wears aids. History of Any Multi-Drug Resistant Organisms: None Reported Past Surgical History: Back Surgery, Heart Catheterization, Joint Replacement Additional Past Surgical History / Comment(s): Noel TKA. Colonoscopy. Glaucoma surg noel. Heart cath 11/28/18 Past Anesthesia/Blood Transfusion Reactions: No Reported Reaction Past Psychological History: Anxiety, Depression Past Alcohol Use History: Occasional Past Drug Use History: None Reported - Past Family History Father Family Medical History: Cancer Medications and Allergies Home Medications Medication Instructions Recorded Confirmed Type Apixaban [Eliquis] 5 mg PO BID 11/23/18 12/29/23 History Atorvastatin [Lipitor] 20 mg PO DAILY 11/23/18 12/29/23 History Lisinopril-Hctz 20-12.5 mg 1 tab PO DAILY 11/23/18 12/29/23 History [Zestoretic 20-12.5] Metoprolol Tartrate [Lopressor] 100 mg PO BID 11/23/18 12/29/23 History metFORMIN HCL [Glucophage] 1,000 mg PO BID 11/23/18 12/29/23 History ARIPiprazole [Abilify] 2 mg PO DAILY 12/29/23 12/29/23 History Baclofen [Lioresal] 10 mg PO BID 12/29/23 12/29/23 History Beclomethasone Dip 80 Mcg/Puff 2 puff INHALATION RT-BID 12/29/23 12/29/23 History [Qvar 80 mcg] Furosemide [Lasix] 20 mg PO DAILY 12/29/23 12/29/23 History Insulin Degludec [Tresiba 64 units SQ DAILY 12/29/23 12/29/23 History Flextouch U-100 Pen] Omeprazole/Sodium Bicarbonate 1 cap PO DAILY 12/29/23 12/29/23 History [Zegerid 20 mg Capsule] Semaglutide [Ozempic] 2 mg SQ WEEKLY 12/29/23 12/29/23 History Venlafaxine HCl ER [Effexor Xr] 150 mg PO DAILY 12/29/23 12/29/23 History Venlafaxine HCl [Effexor XR] 37.5 mg PO DAILY 12/29/23 12/29/23 History amLODIPine [Norvasc] 5 mg PO DAILY 12/29/23 12/29/23 History Allergies Allergy/AdvReac Type Severity Reaction Status Date / Time Penicillins Allergy Anaphylaxis Verified 12/29/23 08:57 Sulfa (Sulfonamide Allergy Anaphylaxis Verified 12/29/23 08:57 Antibiotics) Physical Exam Osteopathic Statement: *. No significant issues noted on an osteopathic structural exam other than those noted in the History and Physical/Consult. Vitals: Vital Signs Temp Pulse Resp BP Pulse Ox 12/29/23 06:19 98 18 164/92 98 12/29/23 04:00 98.7 F 82 18 134/114 95 12/29/23 03:06 95 20 153/111 97 12/29/23 01:40 96 20 153/92 93 L 12/29/23 01:23 98.3 F 94 20 140/121 98 Intake and Output 12/28/23 12/29/23 12/29/23 22:59 06:59 14:59 Other: Weight 127.006 kg Results CBC & Chem 7: 12/30/23 06:16 12/30/23 06:16 Labs: Abnormal Lab Results - Last 24 Hours (Table) 12/29/23 12/29/23 Range/Units 01:40 01:40 WBC 14.1 H (3.8-10.6) k/uL Neutrophils # 11.0 H (1.3-7.7) k/uL Carbon Dioxide 20 L (22-30) mmol/L BUN 21 H (9-20) mg/dL Glucose 298 H (74-99) mg/dL
--- NOTE | 2023-12-29 10:52 | P.CRDCN ---
History of Present Illness History of present illness: HISTORY OF PRESENT ILLNESS: This is a 73-year-old male with a past medical history significant for mild CAD, permanent atrial fibrillation, hypertension, hyperlipidemia, diabetes, and per ipheral vascular disease. Patient follows in the office with Dr. Naqvi. We have been asked to see the patient in consultation for A-fib and CHF. Patient examined at the bedside in the emergency room. Patient initially presented to [facility] with a chief complaint of inability to sleep. Apparently they thought the patient was in congestive heart failure and transferred him to [facility]. Patient states the only thing that brought him to the hospital was his inability to sleep. He states that he has not slept in 3 or 4 days. The patient was found to be confused when he went to [facility] and underwent brain CT which did not reveal any acute abnormalities. The patient still is confused at the time of my examination. Patient is not able to answer questions clearly. Patient was also unable to tell us how old he is. Patient was asked if he does any drugs on an outpatient basis and patient responded with "Im not sure how you want me to answer that". Patient also asking questions such as " can I just go home for a few days and sleep and then come back?" Patient currently denies chest pain or pressure. He denies shortness of breath. He denies dizziness or lightheadedness. Denies palpitations. DIAGNOSTICS: - EKG reveals atrial fibrillation with controlled ventricular rate - Chest xray obtained at outside facility was dictated as low lung volumes with diffuse hazy appearance which may reflect atelectasis versus pulmonary edema. - Laboratory data: WBC 14.1. Hemoglobin 14.7. Platelet count 252. Sodium 138. Potassium 4.1. BUN 21. Creatinine 0.75. proBNP 611. - Current home cardiac medications include amlodipine 5 mg daily, Lasix 20 mg daily, lisinoprilhydrochlorothiazide 20-12.5 mg daily, Eliquis 5 mg twice a day, Lipitor 20 mg daily, metoprolol tartrate 100 mg twice a day - Most recent echocardiogram obtained in December 2022 revealing normal EF, mild to moderate TR, mild to moderate MR - Cardiac catheterization history: November 2018 revealing mild disease of the RCA REVIEW OF SYSTEMS: At the time of my exam: CONSTITUTIONAL: Denies fever or chills. HEENT: Denies blurred vision, vision changes, or eye pain. Denies hemoptysis CARDIOVASCULAR: Denies chest pain. Denies orthopnea. Denies PND. Denies palpita tions RESPIRATORY: Denies shortness of breath. GASTROINTESTINAL: Denies abdominal pain. Denies nausea or vomiting. HEMATOLOGIC: Denies bleeding disorders. GENITOURINARY: Denies any blood in urine. SKIN: Denies pruitis. Denies rash. PHYSICAL EXAM: VITAL SIGNS: Reviewed. GENERAL: Well-developed in no acute distress. HEENT: Head is normocephalic. Pupils are equal, round. Sclerae anicteric. Mucous membranes of the mouth are moist. Neck supple. No JVD or thyromegaly LUNGS: Respirations even and unlabored. Lungs essentially clear to auscultation bilaterally. HEART: Irregular rate and rhythm. S1 and S2 heard. Systolic murmur noted ABDOMEN: Soft. Nondistended. Nontender. EXTREMITIES: Normal range of motion. No clubbing or cyanosis. Peripheral pulses intact. Bilateral lower extremity edema NEUROLOGIC: Awake and alert. Confused. ASSESSMENT: Insomnia, patient reports inability to sleep in 3 days Altered mental status Leukocytosis Permanent atrial fibrillation Chronic heart failure with preserved EF, currently euvolemic and not in acute exacerbation Hypertension, uncontrolled Hyperlipidemia Diabetes History of peripheral vascular disease Obesity: BMI 41.3 PLAN: Obtain 2D echo to assess cardiac structure and function Discontinue IV Lasix as patient is not in acute heart failure at the time of examination. Resume oral Lasix. Increase amlodipine to 10 mg daily for optimal blood pressure control Resume additional home cardiac medications Continue anticoagulation with Eliquis Consult neurology due to patient's altered mental status Further recommendations pending patient course Nurse practitioner note has been reviewed by physician. 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 Past Medical History Past Medical History: Atrial Fibrillation, COPD, Diabetes Mellitus, GERD/Reflux, Hearing Disorder / Deafness, Hyperlipidemia, Hypertension, Musculoskeletal Disorder Additional Past Medical History / Comment(s): Chronic Back Pain, sees pain specialist, unable to walk any distance. Neuropathy in feet. Very NOME, wears aids. History of Any Multi-Drug Resistant Organisms: None Reported Past Surgical History: Back Surgery, Heart Catheterization, Joint Replacement Additional Past Surgical History / Comment(s): Noel TKA. Colonoscopy. Glaucoma surg noel. Heart cath 11/28/18 Past Anesthesia/Blood Transfusion Reactions: No Reported Reaction Past Psychological History: Anxiety, Depression Past Alcohol Use History: Occasional Past Drug Use History: None Reported - Past Family History Father Family Medical History: Cancer Medications and Allergies Home Medications Medication Instructions Recorded Confirmed Type Apixaban [Eliquis] 5 mg PO BID 11/23/18 12/29/23 History Atorvastatin [Lipitor] 20 mg PO DAILY 11/23/18 12/29/23 History Lisinopril-Hctz 20-12.5 mg 1 tab PO DAILY 11/23/18 12/29/23 History [Zestoretic 20-12.5] Metoprolol Tartrate [Lopressor] 100 mg PO BID 11/23/18 12/29/23 History metFORMIN HCL [Glucophage] 1,000 mg PO BID 11/23/18 12/29/23 History ARIPiprazole [Abilify] 2 mg PO DAILY 12/29/23 12/29/23 History Baclofen [Lioresal] 10 mg PO BID 12/29/23 12/29/23 History Beclomethasone Dip 80 Mcg/Puff 2 puff INHALATION RT-BID 12/29/23 12/29/23 History [Qvar 80 mcg] Furosemide [Lasix] 20 mg PO DAILY 12/29/23 12/29/23 History Insulin Degludec [Tresiba 64 units SQ DAILY 12/29/23 12/29/23 History Flextouch U-100 Pen] Omeprazole/Sodium Bicarbonate 1 cap PO DAILY 12/29/23 12/29/23 History [Zegerid 20 mg Capsule] Semaglutide [Ozempic] 2 mg SQ WEEKLY 12/29/23 12/29/23 History Venlafaxine HCl ER [Effexor Xr] 150 mg PO DAILY 12/29/23 12/29/23 History Venlafaxine HCl [Effexor XR] 37.5 mg PO DAILY 12/29/23 12/29/23 History amLODIPine [Norvasc] 5 mg PO DAILY 12/29/23 12/29/23 History Allergies Allergy/AdvReac Type Severity Reaction Status Date / Time Penicillins Allergy Anaphylaxis Verified 12/29/23 08:57 Sulfa (Sulfonamide Allergy Anaphylaxis Verified 12/29/23 08:57 Antibiotics) Physical Exam Vitals: Vital Signs Temp Pulse Resp BP Pulse Ox 12/29/23 09:09 96 18 177/103 12/29/23 06:19 98 18 164/92 98 12/29/23 04:00 98.7 F 82 18 134/114 95 12/29/23 03:06 95 20 153/111 97 12/29/23 01:40 96 20 153/92 93 L 12/29/23 01:23 98.3 F 94 20 140/121 98 Intake and Output 12/28/23 12/29/23 12/29/23 22:59 06:59 14:59 Other: Weight 127.006 kg Results 12/29/23 01:40 12/29/23 01:40 Cardiac Enzymes 12/29/23 Range/Units 01:40 AST 56 (17-59) U/L Coagulation 12/29/23 Range/Units 01:40 PT 12.2 (10.0-12.5) sec APTT 24.9 (22.0-30.0) sec CBC 12/29/23 Range/Units 01:40 WBC 14.1 H (3.8-10.6) k/uL RBC 4.81 (4.30-5.90) m/uL Hgb 14.7 (13.0-17.5) gm/dL Hct 45.3 (39.0-53.0) % Plt Count 252 (150-450) k/uL Comprehensive Metabolic Panel 12/29/23 Range/Units 01:40 Sodium 138 (137-145) mmol/L Potassium 4.1 (3.5-5.1) mmol/L Chloride 101 (98-107) mmol/L Carbon Dioxide 20 L (22-30) mmol/L BUN 21 H (9-20) mg/dL Creatinine 0.75 (0.66-1.25) mg/dL Glucose 298 H (74-99) mg/dL Calcium 9.0 (8.4-10.2) mg/dL AST 56 (17-59) U/L ALT 29 (4-49) U/L Alkaline Phosphatase 73 (38-126) U/L Total Protein 7.4 (6.3-8.2) g/dL Albumin 4.6 (3.5-5.0) g/dL Current Medications Generic Name Dose Route Start Last Admin Trade Name Freq PRN Reason Stop Dose Admin Acetaminophen 650 mg 12/29/23 01:46 Acetaminophen Tab 325 Mg Tab PO Q6HR PRN Mild Pain or Fever > 100.5 Apixaban 5 mg 12/29/23 09:00 12/29/23 09:16 Apixaban 5 Mg Tab PO 5 mg BID HUGH Administration Protocol Atorvastatin Calcium 20 mg 12/29/23 09:00 12/29/23 09:16 Atorvastatin 20 Mg Tab PO 20 mg DAILY HGUH Administration Dextrose/Water 25 ml 12/29/23 07:45 Dextrose 50% Syringe 50 Ml IVP PER PROTOCOL PRN Hypoglycemia Protocol Dextrose/Water 50 ml 12/29/23 07:45 Dextrose 50% Syringe 50 Ml IVP PER PROTOCOL PRN Hypoglycemia Protocol Lisinopril/HCTZ 1 each 12/30/23 09:00 Lisinopril-Hctz 20-12.5 Mg 1 Each Tab PO DAILY [facility] Insulin Aspart 0 unit 12/29/23 12:30 Insulin Aspart (Novolog) 100 Unit/Ml Vial SQ ACHS [facility] Protocol Metoprolol Tartrate 100 mg 12/29/23 09:00 12/29/23 09:17 Metoprolol Tartrate 50 Mg Tab PO 100 mg BID HUGH Administration Naloxone HCl 0.2 mg 12/29/23 01:46 Naloxone 0.4 Mg/Ml 1 Ml Vial IV Q2M PRN Opioid Reversal Venlafaxine HCl 150 mg 12/29/23 09:00 12/29/23 09:16 Venlafaxine Hcl Er 150 Mg Cap PO 150 mg DAILY HUGH Administration Intake and Output 12/28/23 12/29/23 12/29/23 22:59 06:59 14:59 Other: Weight 127.006 kg 12/29/23 01:40 12/29/23 01:40
[2023-12-29] MEDS: amLODIPine 10 MG TAB PO SCH (11:28)
[2023-12-29 11:37] LABS: Glucose,Whole Blood 289 mg/dL (70-110)
[2023-12-29] MEDS: INSULIN DETEMIR (LEVEMIR) 100 UNIT/ML SYR SQ SCH (11:37)
[2023-12-29] MEDS: VENLAFAXINE HCL ER 37.5 MG CAP PO SCH (11:39)
[2023-12-29 12:36] LABS: Glucose,Whole Blood 295 mg/dL (70-110)
[2023-12-29] MEDS: INSULIN ASPART (NovoLOG) 100 UNIT/ML VIAL SQ SCH (12:39)
[2023-12-29] MEDS: ARIPiprazole 2 MG TAB PO SCH (12:39)
[2023-12-29] MEDS: amLODIPine 5 MG TAB PO SCH (12:42)
--- NOTE | 2023-12-29 15:42 | CA ---
Transthoracic Echo Report Name: Olman Vo Age: 73 Gender: M : 1950 Exam Date: 12/29/2023 08:22 Exam Location: [facility] Ht (in): 69 Wt (lb): 280 Ordering Physician: Gildardo Echevarria MD Attending/Referring Phys: [id number], [employer] Projection Technician Polly Lawrence RDCS Procedure CPT: Indications: chf Cardiac Hx: Technical Quality: Fair Contrast 1: Total Dose (mL): Contrast 2: Total Dose (mL): MEASUREMENTS (Male / Female) Normal Values 2D ECHO LV Diastolic Diameter PLAX 5.4 cm 4.2 - 5.9 / 3.9 - 5.3 cm LV Systolic Diameter PLAX 4.8 cm IVS Diastolic Thickness 1.0 cm 0.6 - 1.0 / 0.6 - 0.9 cm LVPW Diastolic Thickness 1.0 cm 0.6 - 1.0 / 0.6 - 0.9 cm LV Relative Wall Thickness 0.4 LVOT Diameter 2.3 cm LV Diastolic Volume MOD BP 141.9 cm??? 67 - 155 / 56 - 104 cm??? LV Systolic Volume MOD BP 49.3 cm??? 22 - 58 / 19 - 49 cm??? LV Ejection Fraction MOD BP 65.3 % >= 55 % LV Cardiac Index MOD BP 3674.9 cm???/min???m??? LV Diastolic Volume MOD 4C 161.1 cm??? LV Systolic Volume MOD 4C 49.7 cm??? LV Ejection Fraction MOD 4C 69.2 % LV Cardiac Index MOD 4C 4422.6 cm???/min???m??? LV Diastolic Length 4C 9.0 cm LV Systolic Length 4C 7.5 cm LV Diastolic Volume MOD 2C 125.4 cm??? LV Systolic Volume MOD 2C 47.5 cm??? LV Ejection Fraction MOD 2C 62.2 % LV Cardiac Index MOD 2C 3091.3 cm???/min???m??? LV Diastolic Length 2C 9.0 cm LV Systolic Length 2C 7.2 cm LA Volume 88.5 cm??? 18 - 58 / 22 - 52 cm??? LA Volume Index 34.8 cm???/m??? 16 - 28 cm???/m??? Ascending Aorta Diameter 4.1 cm DOPPLER AV Peak Velocity 160.4 cm/s AV Peak Gradient 10.3 mmHg AV Mean Velocity 101.0 cm/s AV Mean Gradient 4.7 mmHg AV Velocity Time Integral 26.1 cm LVOT Peak Velocity 121.7 cm/s LVOT Peak Gradient 5.9 mmHg LVOT Velocity Time Integral 17.8 cm LVOT Stroke Volume 75.4 cm??? LVOT Stroke Volume Index 31.6 ml/m??? LVOT Cardiac Index 2990.9 cm???/min???m??? AV Area Cont Eq vti 2.9 cm??? AV Area Cont Eq pk 3.2 cm??? MV Peak Velocity 100.6 cm/s MV Peak Gradient 4.0 mmHg MV Mean Velocity 51.1 cm/s MV Mean Gradient 1.3 mmHg MV Velocity Time Integral 22.9 cm FINDINGS Left Ventricle Left ventricular ejection fraction is estimated at 60 %. Left ventricular cavity size normal. Left ventricular wall thickness normal. No obvious regional wall motion abnormalities. Right Ventricle Normal right ventricular size and function. Unable to estimate the right ventricular systolic pressure. Right Atrium Mild right atrial dilatation. Left Atrium Moderately increased left atrial volume. Moderately increased left atrial area. Mitral Valve Structurally normal mitral valve. No evidence for mitral valve prolapse. No mitral stenosis. Trace mitral regurgitation. Aortic Valve Trileaflet aortic valve. No aortic valve stenosis or regurgitation. Tricuspid Valve Structurally normal tricuspid valve. No tricuspid stenosis. Trace tricuspid regurgitation. Pulmonic Valve Pulmonic valve not well visualized. Pericardium No pericardial effusion. Aorta Mildly dilated aortic annulus. Mildly dilated ascending aorta. CONCLUSIONS Left ventricular ejection fraction 60% Moderately dilated left atrium Trace mitral regurgitation Trace tricuspid regurgitation No pericardial effusion Ascending root 4.1 cm Previewed by: Dr. Jareth Yost DO (Electronically Signed) Final Date: 29 December 2023 15:41
[2023-12-29 17:31] LABS: Glucose,Whole Blood 259 mg/dL (70-110)
[2023-12-29] MEDS ORDERED: MELATONIN 3 MG TABLET PO PRN (17:35)
[2023-12-29] MEDS: FLUTICASONE 110 MCG INHALER INHALATION SCH (19:56)
[2023-12-29] MEDS: ALPRAZolam 0.25 MG TAB PO SCH (21:19)
--- NOTE | 2023-12-29 23:43 | US ---
EXAMINATION TYPE: US carotid duplex BILAT DATE OF EXAM: 12/29/2023 COMPARISON: NONE CLINICAL INDICATION: Male, 73 years old with history of speech difficulty, r/o CVA; stroke TECHNIQUE: Grayscale, color Doppler and spectral Doppler evaluation of the bilateral carotid systems and vertebral arteries. Indirect Doppler criteria was utilized. FINDINGS: EXAM MEASUREMENTS: RIGHT: Peak Systolic Velocity (PSV) cm/sec ----- Right CCA: 55.9 ----- Right ICA: 41.6 ----- Right ECA: 63.7 ICA/CCA ratio: .7 RIGHT: End Diastole cm/sec ----- Right CCA: 13 ----- Right ICA: 11 ----- Right ECA: 11.7 LEFT: Peak Systolic Velocity (PSV) cm/sec ----- Left CCA: 81.2 ----- Left ICA: 62.4 ----- Left ECA: 74.7 ICA/CCA ratio: .8 LEFT: End Diastole cm/sec ----- Left CCA: 16.2 ----- Left ICA: 17.5 ----- Left ECA: 10.4 VERTEBRALS (direction of flow): Right Vertebral: Antegrade Left Vertebral: Antegrade Rhythm: Normal [employer] SYSTEMS ENGINEER NOTES: No significant stenosis seen IMPRESSION: Right: Less than 50% stenosis of the carotid bifurcation. Normal (no stenosis)=ICA PSV < 125 cm/s: ra alem < 2.0: ICA EDV<40 cm/s. Left: Less than 50% stenosis of the carotid bifurcation. Normal (no stenosis)=ICA PSV < 125 cm/s: rat io < 2.0: ICA EDV<40 cm/s. Criteria for Assigning % of Stenosis / Diameter reduction (Estimation based on the indirect measurements of the internal carotid artery velocities (ICA PSV). 1. Normal (no stenosis)=ICA PSV < 125 cm/s: ratio < 2.0: ICA EDV<40 cm/s. 2. Less than 50% stenosis=ICA PSV < 125 cm/s: ratio < 2.0: ICA EDV<40 cm/s. 3. 50 to 69% stenosis=ICA PSV of 125 to 230 cm/s: ration 2.0 ? 4.0: ICA EDV 40-100 cm/s. 4. Greater than 70% stenosis to near occlusion= ICA PSV > 230 cm/s: ratio > 4.0: ICA EDV > 100 cm/s. 5. Near occlusion= ICA PSV velocities may be low or undetectable: variable ratio and ICA EDV. 6. Total occlusion=unable to detect flow. [facility], , 12/29/2023 11:40 PM
[2023-12-30 00:19] LABS: Glucose,Whole Blood 214 mg/dL (70-110)
[2023-12-30 06:50] LABS: HGB 14.2 gm/dL (13.0-17.5); MCH 30.7 pg (25.0-35.0); MCHC 34.6 g/dL (31.0-37.0); Mean Platelet Volume 8.3; Platelet Count 237 k/uL (150-450); RBC 4.62 m/uL (4.30-5.90); RDW 13.1 % (11.5-15.5); WBC 12.5 k/uL (3.8-10.6)
[2023-12-30 07:02] LABS: African American GFR (CKD) >90 (>60 ml/min/1.73 sqM); Anion Gap 6 mmol/L; Blood Urea Nitrogen 16 mg/dL (9-20); Calcium 8.6 mg/dL (8.4-10.2); Carbon Dioxide 25 mmol/L (22-30); Chloride 105 mmol/L (98-107); Glucose 96 mg/dL (74-99); Magnesium 1.7 mg/dL (1.6-2.3); Non-African American GFR(CKD) >90 (>60 ml/min/1.73 sqM); Potassium 3.2 mmol/L (3.5-5.1); Sodium 136 mmol/L (137-145)
[2023-12-30 07:29] LABS: MCV 88.8 fL (80.0-100.0)
--- NOTE | 2023-12-30 07:46 | P.CNNES ---
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 Patient's 2 sons were also present and they provided the history. Patient has been having some moments of confusion for the last 6 months but they were not as bad. He would forget, would not know what he is supposed to be doing. This has gotten worse in the last 3 days. He keeps on repeating "I don't know what I'm supposed to be doing". He has been to his for over 50 years. However when he forgets, his gets edgy, and then they start arguing. He then gets angry, because he does not understand. There is no report of dysarthria, facial droop, slurring speech any new visual disturbances besides his cataract. Denies any numbness or tingling except for some numbness in the feet which he has from neuropathy. Denies any history of strokes or TIA. Patient says that he has not slept for last 4 days, which is making him worse. He does have obstructive sleep apnea, and uses CPAP machine. However he feels he can't breathe. He is using the CPAP, therefore stops using it and that he cannot sleep. As per EMS flowsheet patient was brought in due to weakness. Patient was found to be altered with a positive new onset CHF. Patient has history of atrial fibrillation and staff stated that patient was currently in A-fib, and complaining of shortness of breath. Patient was noted to be alert and orient x 4. Patient's blood test shows WBC 14.1 hemoglobin 14.7 platelets are normal. PT PTT normal. Chem-7 is normal. Hepatic panel normal. EKG showed atrial flutter/tachycardia. Patient says that he has history of diabetes for 10 years. Also has hypertension. He smokes pot every day which helps. He was to follow-up with pain management but for last 1 year since he started smoking pot, he has been discharged from the pain clinic. Patient denies any smoking tobacco or alcohol use. Denies any history of seizures. He states he has history of rheumatic fever as a child. Patient's home medications include Eliquis 5 mg twice daily, lisinopril/HCTZ, metoprolol, metformin, Lipitor 20 mg, amlodipine, Lasix, Ozempic, Effexor, Abilify 2 mg daily, baclofen 10 mg twice daily. Patient has history of failed back surgery about 21 years ago. He has been using wheelchair for last 1-1/2-2 years. He does walk around the house by himse lf hanging onto the furniture or the cano. He does have electric wheelchair a push wheelchair and a walker. However he cannot stand too long. Also has a history of both the surgeries in the past. Records at [facility]: CTA of head and neck revealed poor bolus timing limits evaluation. No evidence for stenosis at the carotid bifurcations. The vertebral arteries are poorly visualized due to poor opacification with IV contrast. Motion also limits evaluation of the brain. Consider repeat examination. CT head revealed no acute intracranial process. Nonspecific white matter changes, likely secondary to chronic small vessel ischemic disease. Urine drug screen positive for cannabinoids, opiates, oxycodone. Ammonia 29, lactic acid 2.3. Blood alcohol level negative. Basic metabolic panel with glucose 244, BUN 23, creatinine 0.92 hepatic panel normal CBC with WBC 15.64, hemoglobin 15. Patient was brought to the hospital because of shortness of breath and confusion going on for the last week or so. Confusion started 2 or 3 days ago as patient cannot remember things, asked questions over and over again. Review of Systems All pertinent positive and negatives mentation in the HPI. Otherwise unremarkable. Patient does have anxiety depression. Difficulty walking, back pain and peripheral neuropathy, history of glaucoma Past Medical History Past Medical History: Atrial Fibrillation, COPD, Diabetes Mellitus, GERD/Reflux, Hearing Disorder / Deafness, Hyperlipidemia, Hypertension, Musculoskeletal Disorder Additional Past Medical History / Comment(s): Chronic Back Pain, sees pain specialist, unable to walk any distance. Neuropathy in feet. Very [place], wears aids. History of Any Multi-Drug Resistant Organisms: None Reported Past Surgical History: Back Surgery, Heart Catheterization, Joint Replacement Additional Past Surgical History / Comment(s): Noel TKA. Colonoscopy. Glaucoma surg noel. Heart cath 11/28/18 Past Anesthesia/Blood Transfusion Reactions: No Reported Reaction Past Psychological History: Anxiety, Depression Past Alcohol Use History: Occasional Past Drug Use History: None Reported - Past Family History Father Family Medical History: Cancer Medications and Allergies Home Medications Medication Instructions Recorded Confirmed Type Apixaban [Eliquis] 5 mg PO BID 11/23/18 12/29/23 History Atorvastatin [Lipitor] 20 mg PO DAILY 11/23/18 12/29/23 History Lisinopril-Hctz 20-12.5 mg 1 tab PO DAILY 11/23/18 12/29/23 History [Zestoretic 20-12.5] Metoprolol Tartrate [Lopressor] 100 mg PO BID 11/23/18 12/29/23 History metFORMIN HCL [Glucophage] 1,000 mg PO BID 11/23/18 12/29/23 History ARIPiprazole [Abilify] 2 mg PO DAILY 12/29/23 12/29/23 History Baclofen [Lioresal] 10 mg PO BID 12/29/23 12/29/23 History Beclomethasone Dip 80 Mcg/Puff 2 puff INHALATION RT-BID 12/29/23 12/29/23 History [Qvar 80 mcg] Furosemide [Lasix] 20 mg PO DAILY 12/29/23 12/29/23 History Insulin Degludec [Tresiba 64 units SQ DAILY 12/29/23 12/29/23 History Flextouch U-100 Pen] Omeprazole/Sodium Bicarbonate 1 cap PO DAILY 12/29/23 12/29/23 History [Zegerid 20 mg Capsule] Semaglutide [Ozempic] 2 mg SQ WEEKLY 12/29/23 12/29/23 History Venlafaxine HCl ER [Effexor Xr] 150 mg PO DAILY 12/29/23 12/29/23 History Venlafaxine HCl [Effexor XR] 37.5 mg PO DAILY 12/29/23 12/29/23 History amLODIPine [Norvasc] 5 mg PO DAILY 12/29/23 12/29/23 History Allergies Allergy/AdvReac Type Severity Reaction Status Date / Time Penicillins Allergy Anaphylaxis Verified 12/29/23 08:57 Sulfa (Sulfonamide Allergy Anaphylaxis Verified 12/29/23 08:57 Antibiotics) Physical Examination - Vital Signs Vital Signs: Vital Signs Temp Pulse Resp BP Pulse Ox 12/29/23 09:09 96 18 177/103 10/18/24 06:19 98 18 164/92 98 12/29/23 04:00 98.7 F 82 18 134/114 95 12/29/23 03:06 95 20 153/111 97 12/29/23 01:40 96 20 153/92 93 L 12/29/23 01:23 98.3 F 94 20 140/121 98 Intake and Output 12/29/23 12/29/23 12/29/23 06:59 14:59 22:59 Other: Weight 127.006 kg Patient is an elderly male, very pleasant, in no acute distress. Patient is alert awake oriented to time place and person. He knows it is 12/30/2023 and that he is in [facility] in [place]. He knows he is in [facility]. Patient states current president is "Pace", then he said "Peence". He has some word finding problems at at times, and thought block. Speech and language functions are normal. Patient can name and repeat very well. No aphasia or dysarthria. Attention, concentration and fund of knowledge is adequate. On cranial nerve examination, pupils are equal, round and reacting to light, visual butts are full on confrontation, with no neglect on double simultaneous stimulation. Extraocular muscles are intact with no nystagmus. Face is symmetric, tongue protrudes to the midline. Palatal elevation and sensation normal, hearing and shoulder shrug normal, facial sensation normal. On muscle strength testing, there is no pronator drift and the strength is normal in arms distally and proximally. In the lower limbs (right/left) ankle dorsiflexion 4/5, inversion 3+/5, [place] 3+/5, toe extension 0/0, hip flexion 4+/5. Deep tendon reflexes are symmetric almost absent and plantars are flat. Sensory to touch is equal with no neglect on double simultaneous stimulation. Cerebellar function showed no ataxia for [id number] testing. No dysdiadochokinesia. No ataxia for [id number] testing on either side. Tone and bulk of muscles normal. Gait deferred.. On general examination, there is no carotid bruit or murmur, S1-S2 audible. Chest is clear on consultation. Abdomen is soft nontender. No organomegaly, bowel sounds present. Peripheral pulses are present. No peripheral edema. Results - Laboratory Findings CBC and BMP: 12/29/23 01:40 12/30/23 06:16 Abnormal Lab Findings: Abnormal Labs 12/29/23 12/29/23 12/29/23 01:40 01:40 11:35 WBC 14.1 H Neutrophils # 11.0 H Carbon Dioxide 20 L BUN 21 H Glucose 298 H POC Glucose (mg/dL) 289 H 12/29/23 12/29/23 12:34 17:29 WBC Neutrophils # Carbon Dioxide BUN Glucose POC Glucose (mg/dL) 295 H 259 H Assessment and Plan Assessment: * 73-year-old male presents with some moments of forgetfulness/confusion off and on for 6 months, but has got worse in the last 3 days. Examination reveals some word finding problems at times, thought block otherwise he is fairly oriented. Examination is relatively nonfocal. Exact cause is uncertain. 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 * Diabetes * Hypertension * Hyperlipidemia * Obesity * COPD * Obstructive sleep apnea * Marijuana use Plan: * MRI of the brain with and without contrast, evaluate for acute CVA * MRA of the head * 2-D echo with bubble study to rule out PFO * CTA head and neck showed: Poor bolus timing limits evaluation. No evidence for stenosis at the carotid bifurcations. The vertebral arteries are poorly visualized due to poor opacification with IV contrast. Motion also limits evaluation of the brain. Consider repeat examination. * EEG evaluate for encephalopathy, rule out any seizure activity * Fasting a.m. lipid panel * Hemoglobin A1c * B12, folate * Optimize control of blood pressure * Continue Eliquis for atrial fibrillation * Neuro checks every 4 hours * Telemetry monitoring rule out any arrhythmia * PT, OT, speech therapy * DVT prophylaxis: On Eliquis * Neurology will continue to follow. Thank you for the consult. Time with Patient: Greater than 30
[2023-12-30 07:52] LABS: Glucose,Whole Blood 94 mg/dL (70-110)
[2023-12-30] MEDS: ASPIRIN 81 MG PO SCH (08:53)
[2023-12-30] MEDS: FUROSEMIDE 20 MG TAB PO SCH (08:53)
[2023-12-30] MEDS: LISINOPRIL-HCTZ 20-12.5 MG 1 EACH TAB PO SCH (09:00)
[2023-12-30] MEDS: MAGNESIUM OXIDE 400 MG TAB PO STA (09:30)
[2023-12-30] MEDS: POTASSIUM CHLORIDE ER 20 MEQ TAB.ER PO STA (09:30)
--- NOTE | 2023-12-30 12:25 | P.PN ---
Subjective Progress Note Date: 12/30/23 Hospital Course: Patient is a very pleasant 73-year-old male with a past medical history of CAD, hypertension, hyperlipidemia, chronic atrial fibrillation, chronic diastolic heart failure, insulin-dependent diabetes mellitus, and peripheral vascular disease. He initially prresented to [facility] for reports of shortness of breath, insomnia, and increased episodes of confusion. A CT head was completed negative for acute process and CTA head and neck reported poor contrast bolus timing but no evidence of carotid stenosis or acute process. He was however found to have an elevated BNP and negative troponin with chest x- ray reporting low lung volumes with diffuse hazy appearance concerning for atelectasis versus pulmonary edema. He was then transferred to our facility from [facility] secondary to concerns for CHF exacerbation. Upon arrival to our facility, patient underwent evaluation in the emergency department. EKG showing atrial fibrillation with a controlled ventricular rate of 96 bpm and an incomplete right bundle branch block upon personal review and interpretation. Vital signs upon arrival show blood pressure 140/121, heart rate 94, respiratory rate 20, temp 98.3 F, and SpO2 of 98% on 2 L. Labs completed and reviewed. CBC showing leukocytosis with WBC count of 14.1. Coagulation profile normal findings. BMP showing high anion gap metabolic acidosis with chloride of 101, bicarb of 20, and anion gap of 17 with prerenal azotemia with BUN of 21. Blood glucose also elevated at 298. Liver profile was unremarkable. proBNP was 611. Patient admitted under our services with consultation to cardiology and n eurology. Physical exam: Patient seen and fully evaluated at bedside this morning. He was alert to person, place and slightly confused to time and situation. Sitter at bedside maintaining safety. Patient denies having any pain or complaints states he is just unsure what he supposed to do. Patient updated we are awaiting MRI to be completed. Patient's family members arrived to bedside towards end of assessment and were updated on plan and all questions answered. Vital signs reviewed and stable. General: Nontoxic, no distress and appears stated age. Derm: Skin warm and dry, normal coloration for ethnicity. Head: Atraumatic, normocephalic and symmetric. Eyes: EOM's intact, no lid lag, and anicteric sclera Mouth: no lip lesions, mucus membranes moist Cardiovascular: Irregularly irregular, systolic murmur, positive posterior tibial pulses bilaterally, and cap refill < 2 seconds. Lungs: Respirations even and regular with an increased work of breathing at time of assessment. On 2 L O2 via nasal cannula. Lungs diminished otherwise no rhonchi, no rales, no wheezing, and no accessory muscle usage. Abdominal: soft, nontender to palpation, no guarding, no appreciable organomegaly Ext: ROM intact. No gross muscle atrophy, 1+ bilateral lower extremity edema, no contractures Neuro: Speech clear, face symmetrical and CN II-XII grossly intact with no noted focal neuro deficits Psych: Alert and oriented to person and place but slightly confused to time and situation. Appropriate and pleasant affect seemed agitated with answering que stions. Assessment and Plan of Care: Shortness of breath, suspect mild diastolic CHF exacerbation History of CAD Hypertension Hyperlipidemia Chronic atrial fibrillation Chronic diastolic heart failure -Cardiology evaluated and recommending discontinuation of IV Lasix and resuming patient's oral Lasix 20 mg daily. -Telemetry monitoring -ProBNP was 611. -Daily weights and Close monitoring of I's and O's -Cardiac diet -Continue cardiac medication regimen with aspirin 81 mg daily, Eliquis 5 mg twice daily, Lasix 20 mg daily, amlodipine 5 mg daily, atorvastatin 20 mg daily, lisinopril/hydrochlorothiazide 20-12.5 mg daily, and metoprolol 100 mg twice daily. -Continued close monitoring of renal function and electrolytes. -Echocardiogram with bubble study to be completed. Insomnia Obstructive sleep apnea -Orders placed for melatonin 3 mg nightly as needed for insomnia along with Xanax 0.25 mg nightly as needed for sleep. -Continue use of CPAP nightly and while napping. Metabolic encephalopathy, unclear cause -Neurology following, recommending MRI brain with and without contrast to evaluate for acute CVA, MRA head, and 2D echo with bubble study to rule out PFO. -Neurochecks every 4 hours. -Maintain fall precautions. -Continue to provide safe and supportive care with reorientation and assistance as needed. Insulin-dependent diabetes mellitus with hyperglycemia -Continue Levemir 64 units daily along with glycemic protocol and NovoLog sliding scale. Hypokalemia Hypomagnesemia -Potassium 3.2. Orders placed for K-Dur 40 mEq p.o. x 1 dose. -Magnesium 1.7. Orders placed for Mag-Ox 400 mg p.o. x 1 dose. -Continue to monitor electrolyte levels closely and replace as indicated based upon these results. 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 Anxiety and depression -Continue Abilify 2 mg daily and Effexor 150 mg daily. Data and imaging reviewed: Morning labs reviewed. CBC showing leukocytosis with WBC count of 12.5 otherwise normal findings. BMP showing hypokalemia with potassium of 3.2. Blood glucose normal findings at 96. Magnesium slightly low at 1.7. Vital signs reviewed. Blood pressure 127/101, heart rate 65, respiratory rate 16, and SpO2 of 94% on room air. CODE STATUS: Full Code DVT prophylaxis: Eliquis Anticipated discharge date: Pending clinical course Anticipated discharge place: Home Patient was seen independently by Nurse Practitioner. This document was prepared using [employer] dictation software. Please allow for errors in outside installer apprentice while rare they do occur. . I reviewed the documentation as provided by the DINAH above, who is the original author of this note. I agree with the documented assessment and plan, with the following changes: none Objective - Vital Signs Vital signs: Vital Signs Temp 98.7 F 12/29/23 04:00 Pulse 65 12/30/23 07:40 Resp 16 12/30/23 07:40 BP 127/101 12/30/23 07:40 Pulse Ox 94 L 12/30/23 07:40 FiO2 - Labs CBC & Chem 7: 12/30/23 06:16 12/30/23 06:16 Labs: Abnormal Lab Results - Last 24 Hours (Table) 12/29/23 12/29/23 12/29/23 Range/Units 11:35 12:34 17:29 WBC (3.8-10.6) k/uL Sodium (137-145) mmol/L Potassium (3.5-5.1) mmol/L Creatinine (0.66-1.25) mg/dL POC Glucose (mg/dL) 289 H 295 H 259 H (70-110) mg/dL 12/30/23 12/30/23 12/30/23 Range/Units 00:18 06:16 06:16 WBC 12.5 H (3.8-10.6) k/uL Sodium 136 L (137-145) mmol/L Potassium 3.2 L (3.5-5.1) mmol/L Creatinine 0.51 L (0.66-1.25) mg/dL POC Glucose (mg/dL) 214 H (70-110) mg/dL
--- NOTE | 2023-12-30 12:37 | MR ---
EXAMINATION TYPE: MR brain without con DATE OF EXAM: 12/30/2023 COMPARISON: 11/01/2021 HISTORY: r/o CVA, AMS, speech difficulty. TECHNIQUE: Multiplanar, multisequence images of the brain and brainstem is performed without contrast utilizing 13 mL intravenous Gadavist . Findings: On the T1-weighted sagittal images, the midline structures including the craniovertebral junction rel ationships appear normal. The ventricles, basal cisterns and sulci over the convexities moderately enlarged consistent with mod erate age-appropriate atrophy. There is moderate diffuse and multifocal areas of abnormal increased s ignal intensity in the periventricular white matter consistent with chronic ischemic white matter dem yelination. Based on diffusion-weighted imaging, there is no diffusion restriction or acute ischemic event. The posterior fossa including the brainstem, fourth ventricle and cerebellar pontine angles appear no rmal. Intraorbital contents are normal and symmetric. Visualized paranasal sinuses and mastoid air cells ar e well aerated. IMPRESSION: 1. Moderate age-appropriate atrophy and moderate chronic ischemic white matter change. 2. No acute ischemic event. 3. No mass effect or shift of midline structures. [facility], , 12/30/2023 12:35 PM
--- NOTE | 2023-12-30 12:38 | MR ---
EXAMINATION TYPE: MR angio head wo con DATE OF EXAM: 12/30/2023 COMPARISON: None HISTORY: r/o CVA, AMS, speech difficulty. TECHNIQUE: Time of flight images focusing on the [place] were performed without contrast. FINDINGS: There is no sizable aneurysm sac, vascular malformation or occlusive disease intracranially . The right vertebral artery is dominant. Left vertebral artery ends in the PICA IMPRESSION: No significant abnormality seen [facility], , 12/30/2023 12:36 PM
[2023-12-30 12:54] LABS: Glucose,Whole Blood 260 mg/dL (70-110)
[2023-12-30 17:16] LABS: Glucose,Whole Blood 194 mg/dL (70-110)
[2023-12-30 20:15] LABS: Glucose,Whole Blood 172 mg/dL (70-110)
[2023-12-31 01:14] LABS: Glucose,Whole Blood 103 mg/dL (70-110)
[2023-12-31 06:16] LABS: Glucose,Whole Blood 125 mg/dL (70-110)
[2023-12-31 07:18] LABS: HCT 41.9 % (39.0-53.0); HGB 13.6 gm/dL (13.0-17.5); MCHC 32.4 g/dL (31.0-37.0); MCV 92.5 fL (80.0-100.0); Mean Platelet Volume 8.2; Platelet Count 249 k/uL (150-450); RBC 4.53 m/uL (4.30-5.90); RDW 12.8 % (11.5-15.5); WBC 10.4 k/uL (3.8-10.6)
[2023-12-31 07:36] LABS: ALT 31 U/L (4-49); AST 38 U/L (17-59); African American GFR (CKD) >90 (>60 ml/min/1.73 sqM); Albumin 3.6 g/dL (3.5-5.0); Alkaline Phosphatase 59 U/L (38-126); Anion Gap 5 mmol/L; Blood Urea Nitrogen 11 mg/dL (9-20); Calcium 8.5 mg/dL (8.4-10.2); Carbon Dioxide 29 mmol/L (22-30); Chloride 103 mmol/L (98-107); Glucose 120 mg/dL (74-99); Magnesium 1.6 mg/dL (1.6-2.3); Non-African American GFR(CKD) >90 (>60 ml/min/1.73 sqM); Potassium 3.3 mmol/L (3.5-5.1); Sodium 137 mmol/L (137-145); Total Bilirubin 1.3 mg/dL (0.2-1.3); Total Protein 6.2 g/dL (6.3-8.2)
[2023-12-31] MEDS: POTASSIUM CHLORIDE ER 20 MEQ TAB.ER PO STA (08:44)
[2023-12-31] MEDS: MAGNESIUM SULFATE-D5W PMX 1 GM in DEXTROSE/WATER 1 100ML.BAG IVPB SCH (08:45)
--- NOTE | 2023-12-31 10:36 | XR ---
EXAMINATION TYPE: XR chest 1V portable DATE OF EXAM: 12/31/2023 COMPARISON: NONE HISTORY: Shortness of breath TECHNIQUE: Single frontal view of the chest is obtained. FINDINGS: The lungs are clear. There is no pleural effusion or pneumothorax. The heart appears prominent but is difficult to assess with this portable AP technique. The pulmonary vasculature is not congested. The osseous structures are intact IMPRESSION: No acute cardiopulmonary disease. [facility], Workstation: [id number] 12/31/2023 10:33 AM
--- NOTE | 2023-12-31 11:07 | P.PN ---
Subjective Progress Note Date: 12/30/23 Patient was seen for a follow-up. Patient's and patient's granddaughter were present today. Patient's believes that patient is not better anymore. He still mixes up words. He slept very well last night "like a baby", as he states, but his overall confusion has not improved as of this morning. Patient's states that his symptoms got worse in the last 3 days. On asking about his history of marijuana use, patient states that she uses 3-4 joints of marijuana on a daily basis. He is not sure if he took more than usual in the last few days. Objective - Vital Signs Vital signs: Vital Signs Temp 98.7 F 12/29/23 04:00 Pulse 75 12/30/23 13:24 Resp 18 12/30/23 13:24 BP 132/91 12/30/23 13:24 Pulse Ox 95 12/30/23 13:24 FiO2 - Exam Examination essentially unchanged as compared to yesterday. Mentation is normal, some difficulty in keeping train of thoughts. - Labs CBC & Chem 7: 12/31/23 07:06 12/31/23 07:06 Labs: Abnormal Lab Results - Last 24 Hours (Table) 12/29/23 12/30/23 12/30/23 Range/Units 17:29 00:18 06:16 WBC (3.8-10.6) k/uL Sodium (137-145) mmol/L Potassium (3.5-5.1) mmol/L Creatinine (0.66-1.25) mg/dL POC Glucose (mg/dL) 259 H 214 H (70-110) mg/dL Hemoglobin A1c 8.7 H (<=6.0) % 12/30/23 12/30/23 12/30/23 Range/Units 06:16 06:16 12:52 WBC 12.5 H (3.8-10.6) k/uL Sodium 136 L (137-145) mmol/L Potassium 3.2 L (3.5-5.1) mmol/L Creatinine 0.51 L (0.66-1.25) mg/dL POC Glucose (mg/dL) 260 H (70-110) mg/dL Hemoglobin A1c (<=6.0) % Assessment and Plan Assessment: * 73-year-old male presents with some moments of forgetfulness/confusion off and on for 6 months, but has got worse in the last 3 days. Examination reveals some word finding problems at times, thought block otherwise he is fairly oriented. Examination is relatively nonfocal. Exact cause is uncertain. 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 * Diabetes * Hypertension * Hyperlipidemia * Obesity * COPD * Obstructive sleep apnea * Marijuana use Plan: * MRI of the brain with and without contrast, revealed moderate age appropriate atrophy and moderate chronic ischemic white matter change. No acute ischemic event. No mass effect or midline shift. I personally reviewed MRI agree with the findings. On my review, there is significant periventricular and subcortical white matter abnormal signal, consistent with significant small vessel disease. No acute stroke. * MRA of the head is normal, no significant abnormality. * Carotid Doppler revealed less than 50% stenosis of bilateral carotid bifurcation. Antegrade flow in both vertebral arteries. * 2-D echo revealed LVEF 60%. No obvious regional wall motion abnormalities. Moderately increased left atrial volume. Mild right atrial dilation. * CTA head and neck (performed at outside hospital) showed: Poor bolus timing limits evaluation. No evidence for stenosis at the carotid bifurcations. The vertebral arteries are poorly visualized due to poor opacification with IV c ontrast. Motion also limits evaluation of the brain. Consider repeat examination. * EEG evaluate for encephalopathy, rule out any seizure activity. This is only outstanding test. Can be done as an outpatient, but patient's family believes that he is not better since arrival to the hospital. * Fasting a.m. lipid panel with cholesterol 127, LDL 71, HDL 31 triglycerides 120, on 09/15/2023. Continue Lipitor 20 mg daily. * Hemoglobin A1c 8.7. Recommend optimize control of diabetes to target A1c <7.0 * B12 428, folate 16.20, TSH 0.652 * Optimize control of blood pressure * Continue Eliquis for atrial fibrillation. Aspirin 81 mg has been added because of significant small vessel disease. * Neuro checks every 4 hours * Telemetry monitoring rule out any arrhythmia * Recommend limit amount of marijuana use * DVT prophylaxis: On Eliquis
[2023-12-31 11:41] LABS: Glucose,Whole Blood 327 mg/dL (70-110)
--- NOTE | 2023-12-31 11:44 | P.PN ---
Subjective Progress Note Date: 12/31/23 HISTORY OF PRESENT ILLNESS: This is a 73-year-old male with a past medical history significant for mild CAD, permanent atrial fibrillation, hypertension, hyperlipidemia, diabetes, and peripheral vascular disease. Patient follows in the office with Dr. Naqvi. We have been asked to see the patient in consultation for A-fib and CHF. Patient examined at the bedside in the emergency room. Patient initially presented to [facility] with a chief complaint of inability to sleep. Apparently they thought the patient was in congestive heart failure and transferred him to [facility]. Patient states the only thing that brought him to the hospital was his inability to sleep. He states that he has not slept in 3 or 4 days. The patient was found to be confused when he went to [facility] and underwent brain CT which did not reveal any acute abnormalities. The patient still is confused at the time of my examination. Patient is not able to answer questions clearly. Patient was also unable to tell us how old he is. Patient was asked if he does any drugs on an outpatient basis and patient responded with "Im not sure how you want me to answer that". Patient also asking questions such as " can I just go home for a few days and sleep and then come back?" Patient currently denies chest pain or pressure. He denies shortness of breath. He denies dizziness or lightheadedness. Denies palpitations. DIAGNOSTICS: - EKG reveals atrial fibrillation with controlled ventricular rate - Chest xray obtained at outside facility was dictated as low lung volumes with diffuse hazy appearance which may reflect atelectasis versus pulmonary edema. - Laboratory data: WBC 14.1. Hemoglobin 14.7. Platelet count 252. Sodium 138. Potassium 4.1. BUN 21. Creatinine 0.75. proBNP 611. - Current home cardiac medications include amlodipine 5 mg daily, Lasix 20 mg daily, lisinoprilhydrochlorothiazide 20-12.5 mg daily, Eliquis 5 mg twice a day, Lipitor 20 mg daily, metoprolol tartrate 100 mg twice a day - Most recent echocardiogram obtained in December 2022 revealing normal EF, mild to moderate TR, mild to moderate MR - Cardiac catheterization history: November 2018 revealing mild disease of the RCA Progress note 11/30/2023 Patient is progressing well. Hemodynamically stable. Reports that shortness of breath is better. Still appears mildly volume overloaded. PHYSICAL EXAM: VITAL SIGNS: Reviewed. GENERAL: Well-developed in no acute distress. HEENT: Head is normocephalic. Pupils are equal, round. Sclerae anicteric. Mucous membranes of the mouth are moist. Neck supple. No JVD or thyromegaly LUNGS: Respirations even and unlabored. Lungs essentially clear to auscultation bilaterally. HEART: Irregular rate and rhythm. S1 and S2 heard. Systolic murmur noted ABDOMEN: Soft. Nondistended. Nontender. EXTREMITIES: Normal range of motion. No clubbing or cyanosis. Peripheral pulses intact. Bilateral lower extremity edema NEUROLOGIC: Awake and alert. Confused. ASSESSMENT: Insomnia, patient reports inability to sleep in 3 days Altered mental status Leukocytosis Permanent atrial fibrillation Chronic heart failure with preserved EF, currently euvolemic and not in acute exacerbation Hypertension, uncontrolled Hyperlipidemia Diabetes History of peripheral vascular disease Obesity: BMI 41.3 Mildly dilated aortic root at 4.1 Echocardiogram showed EF 60%, moderate dilated left atrium, mild MR mild TR, aortic root 4.1 PLAN: oral Lasix. Increase amlodipine to 10 mg daily for optimal blood pressure control Resume additional home cardiac medications Continue anticoagulation with Eliquis Consult neurology due to patient's altered mental status Further recommendations pending patient course Objective - Vital Signs Vital signs: Vital Signs Temp 97.9 F 12/31/23 08:33 Pulse 67 12/31/23 08:33 Resp 20 12/31/23 08:33 BP 138/80 12/31/23 08:33 Pulse Ox 99 12/31/23 09:22 FiO2 21 12/31/23 03:11 Intake & Output 12/30/23 12/31/23 12/31/23 18:59 06:59 18:59 Intake Total 118 Output Total 300 Balance -300 118 Weight 144.2 kg Intake: Oral 118 Output: Urine 300 Other: Voiding Method Toilet Toilet - Labs CBC & Chem 7: 12/31/23 07:06 12/31/23 07:06 Labs: Abnormal Lab Results - Last 24 Hours (Table) 12/30/23 12/30/23 12/30/23 Range/Units 12:52 17:14 20:13 Potassium (3.5-5.1) mmol/L Creatinine (0.66-1.25) mg/dL Glucose (74-99) mg/dL POC Glucose (mg/dL) 260 H 194 H 172 H (70-110) mg/dL Total Protein (6.3-8.2) g/dL 12/31/23 12/31/23 12/31/23 Range/Units 06:15 07:06 11:39 Potassium 3.3 L (3.5-5.1) mmol/L Creatinine 0.50 L (0.66-1.25) mg/dL Glucose 120 H (74-99) mg/dL POC Glucose (mg/dL) 125 H 327 H (70-110) mg/dL Total Protein 6.2 L (6.3-8.2) g/dL
--- NOTE | 2023-12-31 11:48 | P.PN ---
Subjective Progress Note Date: 12/31/23 HISTORY OF PRESENT ILLNESS: This is a 73-year-old male with a past medical history significant for mild CAD, permanent atrial fibrillation, hypertension, hyperlipidemia, diabetes, and peripheral vascular disease. Patient follows in the office with Dr. Naqvi. We have been asked to see the patient in consultation for A-fib and CHF. Patient examined at the bedside in the emergency room. Patient initially presented to [facility] with a chief complaint of inability to sleep. Apparently they thought the patient was in congestive heart failure and transferred him to [facility]. Patient states the only thing that brought him to the hospital was his inability to sleep. He states that he has not slept in 3 or 4 days. The patient was found to be confused when he went to [facility] and underwent brain CT which did not reveal any acute abnormalities. The patient still is confused at the time of my examination. Patient is not able to answer questions clearly. Patient was also unable to tell us how old he is. Patient was asked if he does any drugs on an outpatient basis and patient responded with "Im not sure how you want me to answer that". Patient also asking questions such as " can I just go home for a few days and sleep and then come back?" Patient currently denies chest pain or pressure. He denies shortness of breath. He denies dizziness or lightheadedness. Denies palpitations. DIAGNOSTICS: - EKG reveals atrial fibrillation with controlled ventricular rate - Chest xray obtained at outside facility was dictated as low lung volumes with diffuse hazy appearance which may reflect atelectasis versus pulmonary edema. - Laboratory data: WBC 14.1. Hemoglobin 14.7. Platelet count 252. Sodium 138. Potassium 4.1. BUN 21. Creatinine 0.75. proBNP 611. - Current home cardiac medications include amlodipine 5 mg daily, Lasix 20 mg daily, lisinoprilhydrochlorothiazide 20-12.5 mg daily, Eliquis 5 mg twice a day, Lipitor 20 mg daily, metoprolol tartrate 100 mg twice a day - Most recent echocardiogram obtained in December 2022 revealing normal EF, mild to moderate TR, mild to moderate MR - Cardiac catheterization history: November 2018 revealing mild disease of the RCA Progress note 11/30/2023 Patient is progressing well. Hemodynamically stable. Reports that shortness of breath is better. Still appears mildly volume overloaded. 12/01/2023 BUN 11, creatinine 0.5, potassium 3.3, NT-proBNP 526, Hb 13.6 Reported having shortness of breath that was worse last night. This morning it appears well. Neurology is working him up for mental status changes and insomnia. They are planning on doing a EEG on Monday. PHYSICAL EXAM: VITAL SIGNS: Reviewed. GENERAL: Well-developed in no acute distress. HEENT: Head is normocephalic. Pupils are equal, round. Sclerae anicteric. Mucous membranes of the mouth are moist. Neck supple. No JVD or thyromegaly LUNGS: Respirations even and unlabored. Lungs essentially clear to auscultation bilaterally. HEART: Irregular rate and rhythm. S1 and S2 heard. Systolic murmur noted ABDOMEN: Soft. Nondistended. Nontender. EXTREMITIES: Normal range of motion. No clubbing or cyanosis. Peripheral pulses intact. Bilateral lower extremity edema NEUROLOGIC: Awake and alert. Confused. ASSESSMENT: Insomnia, patient reports inability to sleep in 3 days Altered mental status Leukocytosis Permanent atrial fibrillation Chronic heart failure with preserved EF, currently euvolemic and not in acute exacerbation Hypertension, uncontrolled Hyperlipidemia Diabetes History of peripheral vascular disease Obesity: BMI 41.3 Mildly dilated aortic root at 4.1 Echocardiogram showed EF 60%, moderate dilated left atrium, mild MR mild TR, aortic root 4.1 PLAN: Lasix 20 mg daily. Farxiga 10 mg daily, Aldactone 12.5 mg daily. Lisinopril HCTZ combination, amlodipine 10 mg daily. Metoprolol 100 mg twice daily. Eliquis 5 twice daily, aspirin 81, Lipitor 20 He is currently rate controlled atrial fibrillation. I would recommend outpatient rhythm control strategy for him. I would also recommend outpatient sleep apnea treatment and testing. I have explained this to the patient and requested him to follow-up in cardiology office. At this time cardiology team will sign off. Please reconsult us in case of any question Objective - Vital Signs Vital signs: Vital Signs Temp 97.9 F 12/31/23 08:33 Pulse 67 12/31/23 08:33 Resp 20 12/31/23 08:33 BP 138/80 12/31/23 08:33 Pulse Ox 99 12/31/23 09:22 FiO2 21 12/31/23 03:11 Intake & Output 12/30/23 12/31/2312/30/24 18:59 06:59 18:59 Intake Total 118 Output Total 300 Balance -300 118 Weight 144.2 kg Intake: Oral 118 Output: Urine 300 Other: Voiding Method Toilet Toilet - Labs CBC & Chem 7: 12/31/23 07:06 12/31/23 07:06 Labs: Abnormal Lab Results - Last 24 Hours (Table) 12/30/23 12/30/23 12/30/23 Range/Units 12:52 17:14 20:13 Potassium (3.5-5.1) mmol/L Creatinine (0.66-1.25) mg/dL Glucose (74-99) mg/dL POC Glucose (mg/dL) 260 H 194 H 172 H (70-110) mg/dL Total Protein (6.3-8.2) g/dL 12/31/23 12/31/23 12/31/23 Range/Units 06:15 07:06 11:39 Potassium 3.3 L (3.5-5.1) mmol/L Creatinine 0.50 L (0.66-1.25) mg/dL Glucose 120 H (74-99) mg/dL POC Glucose (mg/dL) 125 H 327 H (70-110) mg/dL Total Protein 6.2 L (6.3-8.2) g/dL
[2023-12-31] MEDS: SPIRONOLACTONE 25 MG TAB PO SCH (11:52)
[2023-12-31] MEDS: DAPAGLIFLOZIN PROPANEDIOL 10 MG TABLET PO SCH (11:52)
--- NOTE | 2023-12-31 13:38 | P.PN ---
Subjective Progress Note Date: 12/31/23 12/31/2023: Patient was seen for a follow-up. Patient is laying in the bed. He has oxygen on. Per patient's , he has lot better today. He took a shower, but afterwards he started feeling hot, sweaty. He was also having some breathing difficulty. Patient denies any headache or dizziness. 12/30/2023: Patient was seen for a follow-up. Patient's and patient's granddaughter were present today. Patient's believes that patient is not better anymore. He still mixes up words. He slept very well last night "like a baby", as he states, but his overall confusion has not improved as of this morning. Patient's states that his symptoms got worse in the last 3 days. On asking about his history of marijuana use, patient states that she uses 3-4 joints of marijuana on a daily basis. He is not sure if he took more than usual in the last few days. Objective - Vital Signs Vital signs: Vital Signs Temp 97.9 F 12/31/23 08:33 Pulse 66 12/31/23 11:34 Resp 20 12/31/23 11:34 BP 134/87 12/31/23 11:34 Pulse Ox 97 12/31/23 11:34 FiO2 21 12/31/23 03:11 Intake & Output 12/30/23 12/31/23 12/31/23 18:59 06:59 18:59 Intake Total 118 Output Total 300 Balance -300 118 Weight 144.2 kg Intake: Oral 118 Output: Urine 300 Other: Voiding Method Toilet Toilet # Voids 1 - Exam Patient is alert and awake in no distress. Speech and language functions appears normal. Appears slightly encephalopathic. There are no postural tremors noted or myoclonic jerks of outstretched hands. The tremors have improved as compared to yesterday. Patient is more fluent and speaking normally. - Labs CBC & Chem 7: 12/31/23 07:06 12/31/23 07:06 Labs: Abnormal Lab Results - Last 24 Hours (Table) 12/30/23 12/30/23 12/31/23 Range/Units 17:14 20:13 06:15 Potassium (3.5-5.1) mmol/L Creatinine (0.66-1.25) mg/dL Glucose (74-99) mg/dL POC Glucose (mg/dL) 194 H 172 H 125 H (70-110) mg/dL Total Protein (6.3-8.2) g/dL 12/31/23 12/31/23 Range/Units 07:06 11:39 Potassium 3.3 L (3.5-5.1) mmol/L Creatinine 0.50 L (0.66-1.25) mg/dL Glucose 120 H (74-99) mg/dL POC Glucose (mg/dL) 327 H (70-110) mg/dL Total Protein 6.2 L (6.3-8.2) g/dL Assessment and Plan Assessment: * 73-year-old male presents with some moments of forgetfulness/confusion off and on for 6 months, but has got worse in the last 3 days. Examination reveals some word finding problems at times, thought block otherwise he is fairly orie nted. Examination is relatively nonfocal. Possible mild metabolic encephalopathy. 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 * Diabetes * Hypertension * Hyperlipidemia * Obesity * COPD * Obstructive sleep apnea * Marijuana use Plan: * MRI of the brain with and without contrast, revealed moderate age appropriate atrophy and moderate chronic ischemic white matter change. No acute ischemic event. No mass effect or midline shift. I personally reviewed MRI agree with the findings. On my review, there is significant periventricular and subcortical white matter abnormal signal, consistent with significant small vessel disease. No acute stroke. * MRA of the head is normal, no significant abnormality. * Carotid Doppler revealed less than 50% stenosis of bilateral carotid bifurcation. Antegrade flow in both vertebral arteries. * 2-D echo revealed LVEF 60%. No obvious regional wall motion abnormalities. Moderately increased left atrial volume. Mild right atrial dilation. * CTA head and neck (performed at outside hospital) showed: Poor bolus timing limits evaluation. No evidence for stenosis at the carotid bifurcations. The vertebral arteries are poorly visualized due to poor opacification with IV contrast. Motion also limits evaluation of the brain. Consider repeat examination. * EEG evaluate for encephalopathy, rule out any seizure activity. * Fasting a.m. lipid panel with cholesterol 127, LDL 71, HDL 31 triglycerides 120, on 09/15/2023. Continue Lipitor 20 mg daily. * Hemoglobin A1c 8.7. Recommend optimize control of diabetes to target A1c <7.0 * B12 428, folate 16.20, TSH 0.652 * Optimize control of blood pressure * Continue Eliquis for atrial fibrillation. Aspirin 81 mg has been added because of significant small vessel disease. * Neuro checks every 4 hours * Telemetry monitoring rule out any arrhythmia * Recommend limit amount of marijuana use * DVT prophylaxis: On Eliquis * Dr. Gabe Sellers to resume neurology service with morning.
--- NOTE | 2023-12-31 14:12 | P.PN ---
Subjective Progress Note Date: 12/31/23 Hospital Course: Patient is a very pleasant 73-year-old male with a past medical history of CAD, hypertension, hyperlipidemia, chronic atrial fibrillation, chronic diastolic heart failure, insulin-dependent diabetes mellitus, and peripheral vascular disease. He initially prresented to [facility] for reports of shortness of breath, insomnia, and increased episodes of confusion. A CT head was completed negative for acute process and CTA head and neck reported poor contrast bolus timing but no evidence of carotid stenosis or acute process. He was however found to have an elevated BNP and negative troponin with chest x- ray reporting low lung volumes with diffuse hazy appearance concerning for atelectasis versus pulmonary edema. He was then transferred to our facility from [facility] secondary to concerns for CHF exacerbation. Upon arrival to our facility, patient underwent evaluation in the emergency department. EKG showing atrial fibrillation with a controlled ventricular rate of 96 bpm and an incomplete right bundle branch block upon personal review and interpretation. Vital signs upon arrival show blood pressure 140/121, heart rate 94, respiratory rate 20, temp 98.3 F, and SpO2 of 98% on 2 L. Labs completed and reviewed. CBC showing leukocytosis with WBC count of 14.1. Coagulation profile normal findings. BMP showing high anion gap metabolic acidosis with chloride of 101, bicarb of 20, and anion gap of 17 with prerenal azotemia with BUN of 21. Blood glucose also elevated at 298. Liver profile was unremarkable. proBNP was 611. Patient admitted under our services with consultation to cardiology and n eurology.Echocardiogram completed showing preserved EF of 60% with moderately dilated left atrium and trace mitral and tricuspid regurgitation. Cardiology evaluated and recommending continuation of oral Lasix 20 mg daily and lisinopril/hydrochlorothiazide 20/12.5 mg daily and adding on Aldactone 12.5 mg daily and for patient to follow-up outpatient in their office. MRI brain without contrast completed showing moderate age appropriate atrophy and moderate chronic ischemic white matter changes but negative for acute ischemic event. MRA head negative showing no significant abnormality. Physical exam: Patient seen and fully evaluated at bedside this morning. He was alert to person, place and time this morning. He remains slightly confused to situation. Currently reporting increased shortness of breath at rest. Discussed with patient and RN will repeat BNP and chest x-ray. Vital signs reviewed and stable. General: Nontoxic, no distress and appears stated age. Derm: Skin warm and dry, normal coloration for ethnicity. Head: Atraumatic, normocephalic and symmetric. Eyes: EOM's intact, no lid lag, and anicteric sclera Mouth: no lip lesions, mucus membranes moist Cardiovascular: Irregularly irregular, systolic murmur, positive posterior tibial pulses bilaterally, and cap refill < 2 seconds. Lungs: Respirations even and regular with an increased work of breathing at time of assessment. On 2 L O2 via nasal cannula. Lungs diminished otherwise no rhonchi, no rales, no wheezing, and no accessory muscle usage. Abdominal: soft, nontender to palpation, no guarding, no appreciable organomegaly Ext: ROM intact. No gross muscle atrophy, scant bilateral lower extremity edema, no contractures Neuro: Speech clear, face symmetrical and CN II-XII grossly intact with no noted focal neuro deficits Psych: Alert and oriented to person, place, and time but slightly confused to situation. Appropriate and pleasant affect seemed agitated with answering questions. Assessment and Plan of Care: Metabolic encephalopathy, unclear cause -Neurology following, discussed plan of care with neurologist, Dr. Perales. Patient to remain in hospital overnight to have EEG done tomorrow to evaluate for encephalopathy and rule out seizure disorder. -Neurochecks every 4 hours. -Maintain fall precautions. -Continue to provide safe and supportive care with reorientation and assistance as needed. -PT/OT consulted for evaluation. Shortness of breath, suspect mild diastolic CHF exacerbation History of CAD Hypertension Hyperlipidemia Chronic atrial fibrillation Chronic diastolic heart failure -Cardiology evaluated and recommending continuation of oral Lasix 20 mg daily and lisinopril/hydrochlorothiazide 20/12.5 mg daily and adding on Aldactone 12.5 mg daily. -Telemetry monitoring -ProBNP was 611. -Daily weights and Close monitoring of I's and O's -Cardiac diet -Continue cardiac medication regimen with aspirin 81 mg daily, Eliquis 5 mg twice daily, Lasix 20 mg daily, amlodipine 5 mg daily, atorvastatin 20 mg daily, lisinopril/hydrochlorothiazide 20-12.5 mg daily, and metoprolol 100 mg twice daily. -Continued close monitoring of renal function and electrolytes. -Echocardiogram completed showing preserved EF of 60% with moderately dilated left atrium and trace mitral and tricuspid regurgitation. -Order placed for repeat chest x-ray this morning, will follow-up on results once available. Insomnia Obstructive sleep apnea -Orders placed for melatonin 3 mg nightly as needed for insomnia along with Xanax 0.25 mg nightly as needed for sleep. -Continue use of CPAP nightly and while napping. Insulin-dependent diabetes mellitus with hyperglycemia -Continue Levemir 64 units daily along with glycemic protocol and NovoLog sliding scale. Hypokalemia Hypomagnesemia -Potassium 3.3. Orders placed for K-Dur 40 mEq p.o. x 1 dose. -Magnesium 1.6. Orders placed for magnesium sulfate 2 g IVPB x 1 dose. -Continue to monitor electrolyte levels closely and replace as indicated based upon these results. 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 Anxiety and depression -Continue Abilify 2 mg daily and Effexor 150 mg daily. Data and imaging reviewed: Morning labs reviewed. CBC showing resolution of leukocytosis with WBC count of 10.4 this morning.. BMP showing hypokalemia with potassium of 3.3 and blood glucose of 120. Magnesium slightly low at 1.6. Liver profile unremarkable. Vital signs reviewed. Blood pressure 138/80, heart rate 67, respiratory rate 20, temp 97.9 F, and SpO2 of 98% on 2 L. Echocardiogram completed showing preserved EF of 60% with moderately dilated left atrium and trace mitral and tricuspid regurgitation. MRI brain without contrast completed showing moderate age appropriate atrophy and moderate chronic ischemic white matter changes but negative for acute ischemic event. MRA head negative showing no significant abnormality. CODE STATUS: Full Code DVT prophylaxis: Eliquis Anticipated discharge date: Pending clinical course, likely within the next 24 hours pending completion of EEG Anticipated discharge place: Home Patient was seen independently by Nurse Practitioner. This document was prepared using [employer] dictation software. Please allow for errors in sausage stringer while rare they do occur. . I reviewed the documentation as provided by the DINAH above, who is the original author of this note. I agree with the documented assessment and plan, with the following changes: none Objective - Vital Signs Vital signs: Vital Signs Temp 98.3 F 12/31/23 04:00 Pulse 59 L 12/31/23 04:00 Resp 16 12/31/23 04:00 BP 116/68 12/31/23 04:00 Pulse Ox 95 12/31/23 04:00 FiO2 21 12/31/23 03:11 Intake & Output 12/30/23 12/31/23 12/31/23 18:59 06:59 18:59 Output Total 300 Balance -300 Weight 144.2 kg Output: Urine 300 Other: Voiding Method Toilet - Labs CBC & Chem 7: 12/31/23 07:06 12/31/23 07:06 Labs: Abnormal Lab Results - Last 24 Hours (Table) 12/30/23 12/30/23 12/30/23 Range/Units 06:16 12:52 17:14 Potassium (3.5-5.1) mmol/L Creatinine (0.66-1.25) mg/dL Glucose (74-99) mg/dL POC Glucose (mg/dL) 260 H 194 H (70-110) mg/dL Hemoglobin A1c 8.7 H (<=6.0) % Total Protein (6.3-8.2) g/dL 12/30/23 12/31/23 12/31/23 Range/Units 20:13 06:15 07:06 Potassium 3.3 L (3.5-5.1) mmol/L Creatinine 0.50 L (0.66-1.25) mg/dL Glucose 120 H (74-99) mg/dL POC Glucose (mg/dL) 172 H 125 H (70-110) mg/dL Hemoglobin A1c (<=6.0) % Total Protein 6.2 L (6.3-8.2) g/dL
[2023-12-31 16:35] LABS: Glucose,Whole Blood 113 mg/dL (70-110)
[2023-12-31 20:08] LABS: Glucose,Whole Blood 124 mg/dL (70-110)
[2024-01-01 07:23] LABS: Glucose,Whole Blood 170 mg/dL (70-110)
[2024-01-01 08:35] LABS: HCT 42.7 % (39.6-50.0); HGB 14.5 g/dL (13.0-17.0); MCH 30.7 pg (27.0-32.0); MCV 90.5 FL (80.0-97.0); Mean Platelet Volume 11.6 FL (9.5-12.2); NRBC Per 100 WBC 0 X 10*3/uL (0.00-0.01); Platelet Count 249 X 10*3/uL (140-440); RBC 4.72 X 10*6/uL (4.40-5.60); RDW 12.8 % (11.5-14.5); WBC 9.96 X 10*3/uL (4.50-10.00)
[2024-01-01 08:45] LABS: ALT 28 U/L (10-49); AST 29 U/L (14-35); Albumin 3.8 g/dL (3.8-4.9); Albumin/Globulin Ratio 1.65 Ratio (1.60-3.17); Alkaline Phosphatase 65 U/L (41-126); Blood Urea Nitrogen 9.9 mg/dL (9.0-27.0); Calcium 8.5 mg/dL (8.7-10.3); Carbon Dioxide 25.4 mmol/L (21.6-31.8); Chloride 101 mmol/L (96-109); Globulin 2.3 g/dL (1.6-3.3); Glucose 133 mg/dL (70-110); Magnesium 1.9 mg/dL (1.5-2.4); Potassium 3.5 mmol/L (3.5-5.5); Sodium 140 mmol/L (135-145); Total Bilirubin 0.7 mg/dL (0.3-1.2); Total Protein 6.1 g/dL (6.2-8.2)
[2024-01-01] MEDS: levETIRAcetam 500 MG TAB PO SCH (12:03)
[2024-01-01 12:19] LABS: Glucose,Whole Blood 256 mg/dL (70-110)
[2024-01-01 13:16] VITALS: BP 114/75; PULSE 63; RESP 18; TEMP 98.6
--- NOTE | 2024-01-01 14:59 | P.DS ---
Providers Date of admission: 12/29/23 01:47 Expected date of discharge: 01/01/24 Attending physician: Chan Cunningham MD Consults: 12/29/23 01:46 Consult Physician Routine Consulting Provider: Edith Naqvi Consult Reason/Comments: A-fib,CHF Do you want consulting provider notified?: Yes 12/29/23 07:32 Consult Physician Routine Consulting Provider: Gabe Sellers Consult Reason/Comments: confusion Do you want consulting provider notified?: Yes Primary care physician: [facility] Course: Discharge Diagnosis: Metabolic encephalopathy, suspect underlying seizure disorder. EEG showing abnormalities as discussed with neurologist. Neurologist recommending patient being started on Keppra 500 mg every 12 hours and to follow-up outpatient with neurologist. Patient reports seeing neurologist, Dr. Rodriguez. Shortness of breath, mild diastolic CHF exacerbation. Cardiology evaluated and recommending continuation of oral Lasix 20 mg daily and lisinopril/hydrochlorothiazide 20/12.5 mg daily and adding on Aldactone 12.5 mg daily. History of CAD. Continue cardiac medication regimen with aspirin 81 mg daily, Eliquis 5 mg twice daily, Lasix 20 mg daily, amlodipine 5 mg daily, atorvastatin 20 mg daily, lisinopril/hydrochlorothiazide 20-12.5 mg daily, Aldactone 12.5 mg daily, and metoprolol 100 mg twice daily. Hypertension Hyperlipidemia Chronic atrial fibrillation Chronic diastolic heart failure Insomnia. Patient discharged with prescription for melatonin 3 mg nightly as needed for insomnia. Discussed with patient the importance of wearing CPAP nightly and while napping. Obstructive sleep apnea Insulin-dependent diabetes mellitus with hyperglycemia. Improved blood glucose 133 on morning of discharge. Hypokalemia. Resolved. Hypomagnesemia. Resolved. Peripheral vascular disease with peripheral neuropathy of bilateral feet. Continue daily aspirin 81 mg daily and atorvastatin 20 mg daily. Anxiety and depression. Continue Abilify 2 mg daily and Effexor 150 mg daily. Hospital Course: Patient is a very pleasant 73-year-old male with a past medical history of CAD, hypertension, hyperlipidemia, chronic atrial fibrillation, chronic diastolic heart failure, insulin-dependent diabetes mellitus, and peripheral vascular disease. He initially prresented to [facility] for reports of shortness of breath, insomnia, and increased episodes of confusion. A CT head was completed negative for acute process and CTA head and neck reported poor contrast bolus timing but no evidence of carotid stenosis or acute process. He was however found to have an elevated BNP and negative troponin with chest x- ray reporting low lung volumes with diffuse hazy appearance concerning for atelectasis versus pulmonary edema. He was then transferred to our facility from [facility] secondary to concerns for CHF exacerbation. Upon arrival to our facility, patient underwent evaluation in the emergency department. EKG showing atrial fibrillation with a controlled ventricular rate of 96 bpm and an incomplete right bundle branch block upon personal review and interpretation. Vital signs upon arrival show blood pressure 140/121, heart rate 94, respiratory rate 20, temp 98.3 F, and SpO2 of 98% on 2 L. Labs completed and reviewed. CBC showing leukocytosis with WBC count of 14.1. Coagulation profile normal findings. BMP showing high anion gap metabolic acidosis with chloride of 101, bicarb of 20, and anion gap of 17 with prerenal azotemia with BUN of 21. Blood glucose also elevated at 298. Liver profile was unremarkable. proBNP was 611. Patient admitted under our services with consultation to cardiology and neurology.Echocardiogram completed showing preserved EF of 60% with moderately dilated left atrium and trace mitral and tricuspid regurgitation. Cardiology evaluated and recommending continuation of oral Lasix 20 mg daily and lisinopril/hydrochlorothiazide 20/12.5 mg daily and adding on Aldactone 12.5 mg daily and for patient to follow-up outpatient in their office. MRI brain without contrast completed showing moderate age appropriate atrophy and moderate chronic ischemic white matter changes but negative for acute ischemic event. MRA head negative showing no significant abnormality. Metabolic encephalopathy, suspect underlying seizure disorder. EEG showing abnormalities as discussed with neurologist. Neurologist recommending patient being started on Keppra 500 mg every 12 hours and to follow-up outpatient with neurologist. Patient reports seeing neurologist, Dr. Rodriguez. Patient alert and oriented x 4, currently denies having any pain or complaints, medically stable for discharge at this time. Prescriptions were sent to [facility]. Patient to follow-up outpatient with PCP in 1 to 2 days, material coordinator in 2 weeks, and neurologist in 1 to 2 weeks. Physical exam: Vital signs reviewed and stable. General: Nontoxic, no distress and appears stated age. Derm: Skin warm and dry, normal coloration for ethnicity. Head: Atraumatic, normocephalic and symmetric. Eyes: EOM's intact, no lid lag, and anicteric sclera Mouth: no lip lesions, mucus membranes moist Cardiovascular: Irregularly irregular, systolic murmur, positive posterior tibial pulses bilaterally, and cap refill < 2 seconds. Lungs: Respirations even and regular with an increased work of breathing at time of assessment. On 2 L O2 via nasal cannula. Lungs diminished otherwise no rhonchi, no rales, no wheezing, and no accessory muscle usage. Abdominal: soft, nontender to palpation, no guarding, no appreciable organ omegaly Ext: ROM intact. No gross muscle atrophy, scant bilateral lower extremity edema, no contractures Neuro: Speech clear, face symmetrical and CN II-XII grossly intact with no noted focal neuro deficits Psych: Alert and oriented to person, place, and time but slightly confused to situation. Appropriate and pleasant affect seemed agitated with answering questions. A total of 39 minutes of time were spent preparing this complex discharge summary. Pt was discharged on 01/01/2024 at 11:57 AM Patient was seen independently by Nurse Practitioner. This document was prepared using [employer] dictation software. Please allow for errors in english and reading instructor while rare they do occur. . I reviewed the documentation as provided by the DINAH above, who is the original author of this note. I agree with the documented assessment and plan, with the following changes: none Patient Condition at Discharge: Stable Plan - Discharge Summary Discharge Rx Participant: No New Discharge Prescriptions: New Spironolactone [Aldactone] 12.5 mg PO DAILY 30 Days #30 tab Dapagliflozin Propanediol [Farxiga] 10 mg PO DAILY 30 Days #30 tab Melatonin 3 mg PO HS PRN 30 Days #30 tab PRN Reason: Insomnia levETIRAcetam [Keppra] 500 mg PO Q12HR 90 Days #180 tab Continue Metoprolol Tartrate [Lopressor] 100 mg PO BID Lisinopril-Hctz 20-12.5 mg [Zestoretic 20-12.5] 1 tab PO DAILY Apixaban [Eliquis] 5 mg PO BID metFORMIN HCL [Glucophage] 1,000 mg PO BID Atorvastatin [Lipitor] 20 mg PO DAILY amLODIPine [Norvasc] 5 mg PO DAILY Beclomethasone Dip 80 Mcg/Puff [Qvar 80 mcg] 2 puff INHALATION RT-BID Furosemide [Lasix] 20 mg PO DAILY Semaglutide [Ozempic] 2 mg SQ WEEKLY Venlafaxine HCl [Effexor XR] 37.5 mg PO DAILY Venlafaxine HCl ER [Effexor XR] 150 mg PO DAILY ARIPiprazole [Abilify] 2 mg PO DAILY Insulin Degludec [Tresiba Flextouch U-100 Pen] 64 units SQ DAILY Omeprazole/Sodium Bicarbonate [Zegerid 20 mg Capsule] 1 cap PO DAILY Discontinued Baclofen [Lioresal] 10 mg PO BID Discharge Medication List Apixaban [Eliquis] 5 mg PO BID 11/23/18 [History] Atorvastatin [Lipitor] 20 mg PO DAILY 11/23/18 [History] Lisinopril-Hctz 20-12.5 mg [Zestoretic 20-12.5] 1 tab PO DAILY 11/23/18 [History] Metoprolol Tartrate [Lopressor] 100 mg PO BID 11/23/18 [History] metFORMIN HCL [Glucophage] 1,000 mg PO BID 11/23/18 [History] ARIPiprazole [Abilify] 2 mg PO DAILY 12/29/23 [History] Beclomethasone Dip 80 Mcg/Puff [Qvar 80 mcg] 2 puff INHALATION RT-BID 12/29/23 [History] Furosemide [Lasix] 20 mg PO DAILY 12/29/23 [History] Insulin Degludec [Tresiba Flextouch U-100 Pen] 64 units SQ DAILY 12/29/23 [History] Omeprazole/Sodium Bicarbonate [Zegerid 20 mg Capsule] 1 cap PO DAILY 12/29/23 [History] Semaglutide [Ozempic] 2 mg SQ WEEKLY 12/29/23 [History] Venlafaxine HCl ER [Effexor XR] 150 mg PO DAILY 12/29/23 [History] Venlafaxine HCl [Effexor XR] 37.5 mg PO DAILY 12/29/23 [History] amLODIPine [Norvasc] 5 mg PO DAILY 12/29/23 [History] Dapagliflozin Propanediol [Farxiga] 10 mg PO DAILY 30 Days #30 tab 01/01/24 [Rx] Melatonin 3 mg PO HS PRN 30 Days #30 tab 01/01/24 [Rx] Spironolactone [Aldactone] 12.5 mg PO DAILY 30 Days #30 tab 01/01/24 [Rx] levETIRAcetam [Keppra] 500 mg PO Q12HR 90 Days #180 tab 01/01/24 [Rx] Follow up Appointment(s)/Referral(s): Edith Naqvi MD [STAFF PHYSICIAN] - 2 Weeks Aranza Chamberlain MD [REFERRING] - 1 Week Sophy Phelan MD [Primary Care Provider] - 1-2 days (The office will call you with an appointment talia and date.) Patient Instructions/Handouts: Heart Failure (DC), New-Onset Seizure in Adults (DC) Activity/Diet/Wound Care/Special Instructions: Activity: As tolerated. Take breaks as needed. Diet: Heart healthy and carb consistent diet. Avoid salts, or foods with hidden salts such as canned or boxed foods and frozen dinners. Extra salt makes your heart work harder and traps the fluid in your body for longer. Special Instructions: Take all of your medications as directed and remember to keep all of your doctor's appointments and follow-up as needed. [place] state law stating no driving until seizure free for 6 months. It is also important to avoid climbing ladders, operating dangerous or heavy machinery or unsupervised swimming until seizure free for 6 months. Thank you for allowing us to participate in your care, it was truly a pleasure having you for our patient!!! Discharge Disposition: HOME SELF-CARE
--- NOTE | 2024-01-01 15:58 | P.PN ---
Subjective Progress Note Date: 01/01/24 I am seeing the patient for the first time during this admission and is accompanied with his . Please refer to Dr. Perales's notes for further details. The patient has been having word finding difficulty in which he knows what he wants today but is coming out wrong or sometimes he is not able to get the words out or just forgets what he wants to say going on for at least a year as well as has episode of right leg giving out going on for the last 1.5 to 2 years and he stated that he was evaluated by his outpatient analysis evaluator Dr. Rodriguez and he had an EEG and it was negative for any seizures. It seems that his symptoms got worse in which his speech was worse. Denies any jerking of any extremity, foaming around the mouth. He currently denies any headache. Just had an EEG that was completed today and I personally reviewed it and it appears that the patient has sharply contoured activity/spikes over the left temporal region. No seizures noted during the study. Objective - Vital Signs Vital signs: Vital Signs Temp 98.6 F 01/01/24 13:15 Pulse 63 01/01/24 13:15 Resp 18 01/01/24 13:15 BP 114/75 01/01/24 13:15 Pulse Ox 95 01/01/24 13:15 FiO2 21 01/01/24 00:00 Intake & Output 12/31/23 01/01/24 01/01/24 18:59 06:59 18:59 Intake Total 236 540 120 Output Total 100 Balance 236 440 120 Intake: Oral 236 540 120 Output: Urine 100 Other: Voiding Method Toilet Toilet Urinal # Voids 1 - Exam General: Patient sitting on the side of the bed and is not in acute distress. Neuro: The patient is awake alert oriented to self place and time. Is following simple commands. No aphasia no neglect Pupils are round equal reactive to light. Visual butts are full to confrontation. Extraocular movements intact no nystagmus. No facial weakness. No dysarthria During is mild to moderate decrease bilaterally to handgrip Motor strength is 5 out of 5 throughout Sensation is normal to touch - Labs CBC & Chem 7: 01/01/24 05:09 01/01/24 05:09 Labs: Abnormal Lab Results - Last 24 Hours (Table) 12/31/23 12/31/2312/31/24 Range/Units 16:33 20:07 05:09 Anion Gap 13.60 H (4.00-12.00) mmol/L Glucose 133 H (70-110) mg/dL POC Glucose (mg/dL) 113 H 124 H (70-110) mg/dL Calcium 8.5 L (8.7-10.3) mg/dL Total Protein 6.1 L (6.2-8.2) g/dL 01/01/24 01/01/24 Range/Units 07:09 12:08 Anion Gap (4.00-12.00) mmol/L Glucose (70-110) mg/dL POC Glucose (mg/dL) 170 H 256 H (70-110) mg/dL Calcium (8.7-10.3) mg/dL Total Protein (6.2-8.2) g/dL Assessment and Plan Assessment: * 73-year-old male presents with some moments of forgetfulness/confusion/wording difficulty difficulty off and on for 1 year and intermittent right leg weakness for past 1.5-2 years, but has got worse in the last 3 days. Examination is relatively nonfocal. Possible mild metabolic encephalopathy. EEG: Shows sharply contoured activity over the left temporal/discharge and probable his symptoms are due to discharges/seizures. 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 * Diabetes * Hypertension * Hyperlipidemia * Obesity * COPD * Obstructive sleep apnea * Marijuana use Plan: * MRI of the brain with and without contrast, revealed moderate age appropriate atrophy and moderate chronic ischemic white matter change. No acute ischemic event. No mass effect or midline shift. I personally reviewed MRI agree with the findings. On my review, there is significant periventricular and subcortical white matter abnormal signal, consistent with significant small vessel disease. No acute stroke. * MRA of the head is normal, no significant abnormality. * Carotid Doppler revealed less than 50% stenosis of bilateral carotid bifurcation. Antegrade flow in both vertebral arteries. * 2-D echo revealed LVEF 60%. No obvious regional wall motion abnormalities. Moderately increased left atrial volume. Mild right atrial dilation. * CTA head and neck (performed at outside hospital) showed: Poor bolus timing limits evaluation. No evidence for stenosis at the carotid bifurcations. The vertebral arteries are poorly visualized due to poor opacification with IV contrast. Motion also limits evaluation of the brain. Consider repeat examination. * EEG: Preliminary shows sharply contoured activity over the left temporal. No seizure. * I started the patient on Keppra 500mg bid and notified him about side-effects of Keppra. * Recommend a repeat EEG as outpatient and to be coordinated by his neurologist (in past he was seen by Dr. Ricketts and would like to pursue seeing him within 2 weeks). * Per the [place] DMV because of the seizure, to avoid driving for 6 months until seizure-free, avoid heights, avoid swimming assisted or using heavy machinery * Fasting a.m. lipid panel with cholesterol 127, LDL 71, HDL 31 triglycerides 120, on 09/15/2023. Continue Lipitor 20 mg daily. * Hemoglobin A1c 8.7. Recommend optimize control of diabetes to target A1c <7.0 * B12 428, folate 16.20, TSH 0.652 * Optimize control of blood pressure * Continue Eliquis for atrial fibrillation. Aspirin 81 mg has been added because of significant small vessel disease. * Neuro checks every 4 hours * Telemetry monitoring rule out any arrhythmia * Recommend limit amount of marijuana use * DVT prophylaxis: On Eliquis Patient is tolerating Keppra by later this afternoon there is no further neurological workup and the patient is cleared from a neurologic perspective. The plan discussed with the patient, his is at bedside and the primary team nurse practitioner. Time with Patient: Less than 30
--- NOTE | 2024-01-01 22:19 | EEG ---
ELECTROENCEPHALOGRAM REPORT CLINICAL HISTORY: This is a 73-year-old gentleman with history of intermittent speech difficulty, confusion, right-sided weakness. The video EEG is obtained to evaluate for seizure epileptiform activity. RELEVANT MEDICATIONS: 1. Abilify. 2. Effexor. The video EEG is obtained to evaluate for seizure epileptiform activity. DESCRIPTION: Wakefulness is only obtained. During awake state, the posterior-dominant rhythm consists of [id number] voltage of 10 hertz activity that is well modulated, and well sustained. There is no physiological stage 2 sleep architecture. There is no focal slowing. Interictal and ictal is, there is sharply controlled activity over the T5 electrode. At times, there is a sharply contoured activity followed by slow waves. There is no seizure noted during the study. ACTIVATION PROCEDURE: Photic stimulation did not evoke a posterior driving response. There is no abnormality during the photic stimulation. Hyperventilation is not performed. CLINICAL INTERPRETATION: This is an abnormal routine EEG. The background is normal. There is epileptiform discharge over the left temporal (T5 electrode), which can increase risk for focal seizure as well status epilepticus. Otherwise, there is no seizure noted during the study or focal slowing. Clinical correlation is recommended. MMODL / IJN: [id number] /
== END 2024-01-01 17:19 | disposition home or self-care (01) ==
LOC: EC 01:22 → 3SCARD 01:47 → 3NCARDOBS 22:27 → 3SCARD 12-30 00:49 → 5NMEDONC 12-31 17:47
PROVIDERS: ADMIT Internal Medicine; ATTEND Internal Medicine
DX: G93.41 Metabolic encephalopathy (principal); I50.33 Acute on chronic diastolic (congestive) heart failure; I48.21 Permanent atrial fibrillation; E78.5 Hyperlipidemia, unspecified; G47.00 Insomnia, unspecified; E83.42 Hypomagnesemia; E87.6 Hypokalemia; G47.33 Obstructive sleep apnea (adult) (pediatric); E11.51 Type 2 diabetes mellitus with diabetic peripheral angiopathy without gangrene; E11.65 Type 2 diabetes mellitus with hyperglycemia; E11.40 Type 2 diabetes mellitus with diabetic neuropathy, unspecified; I11.0 Hypertensive heart disease with heart failure; J44.9 Chronic obstructive pulmonary disease, unspecified; E87.20 Acidosis, unspecified; F32.A Depression, unspecified; F41.9 Anxiety disorder, unspecified; I25.10 Atherosclerotic heart disease of native coronary artery without angina pectoris; I45.10 Unspecified right bundle-branch block; K21.9 Gastro-esophageal reflux disease without esophagitis; D72.829 Elevated white blood cell count, unspecified; R00.0 Tachycardia, unspecified; R60.9 Edema, unspecified; R61 Generalized hyperhidrosis; R41.82 Altered mental status, unspecified; I48.92 Unspecified atrial flutter; I77.810 Thoracic aortic ectasia; F12.90 Cannabis use, unspecified, uncomplicated; E66.9 Obesity, unspecified; Z68.41 Body mass index [BMI] 40.0-44.9, adult; Z79.01 Long term (current) use of anticoagulants; Z79.85 Long-term (current) use of injectable non-insulin antidiabetic drugs; Z79.82 Long term (current) use of aspirin; Z79.4 Long term (current) use of insulin; Z79.84 Long term (current) use of oral hypoglycemic drugs; Z79.1 Long term (current) use of non-steroidal anti-inflammatories (NSAID); Z79.899 Other long term (current) drug therapy; Z86.19 Personal history of other infectious and parasitic diseases; Z88.0 Allergy status to penicillin; Z88.2 Allergy status to sulfonamides; Z99.89 Dependence on other enabling machines and devices; Z99.3 Dependence on wheelchair
CPT/HCPCS: 96365; 96366; 99285; 36415; 94660 ×2; 94640 ×5; 94760; 95816; 93005; 93306; 97161; 83880 ×2; 80053 ×3; 80048; 84443; 82607; 82746; 83735 ×3; 85025; 85027 ×3; 85610; 85730; 83036; 71045; 93880; 70544; 70553; G0378 ×5; J3475; A9585

== ENCOUNTER → 2024-08-30 | Outpatient (CLI) | payer MEDICARE | END | disposition home or self-care (01) | LOC: LABWHC1 06:56 | PROVIDERS: ATTEND Psychiatry & Neurology Neurology | DX: E11.40 Type 2 diabetes mellitus with diabetic neuropathy, unspecified (principal); G40.209 Localization-related (focal) (partial) symptomatic epilepsy and epileptic syndromes with complex partial seizures, not intractable, without status epilepticus; R41.3 Other amnesia; R41.0 Disorientation, unspecified; Z79.899 Other long term (current) drug therapy | CPT/HCPCS: 36415; 80177; 82607; 83036 ==

== ENCOUNTER → 2024-09-30 | Outpatient (CLI) | payer MEDICARE ==
[2024-09-30 15:56] LABS: ALT 24 U/L (10-49); AST 23 U/L (14-35); Albumin 3.8 g/dL (3.8-4.9); Albumin/Globulin Ratio 1.58 Ratio (1.60-3.17); Alkaline Phosphatase 79 U/L (41-126); Anion Gap 11.10 mmol/L (4.00-12.00); BUN/Creat Ratio 18.14 Ratio (12.00-20.00); Blood Urea Nitrogen 12.7 mg/dL (9.0-27.0); Calcium 8.6 mg/dL (8.7-10.3); Carbon Dioxide 28.9 mmol/L (21.6-31.8); Chloride 101 mmol/L (96-109); Globulin 2.4 g/dL (1.6-3.3); Glucose 104 mg/dL (70-110); Potassium 4.5 mmol/L (3.5-5.5); Sodium 141 mmol/L (135-145); Total Protein 6.2 g/dL (6.2-8.2)
== END | disposition home or self-care (01) ==
LOC: LABWHC1 08:22
PROVIDERS: ATTEND Internal Medicine Endocrinology, Diabetes & Metabolism
DX: E11.65 Type 2 diabetes mellitus with hyperglycemia (principal)
CPT/HCPCS: 36415; 80053; 83519; 84681